=== PATIENT | female | born 1945 | race Caucasian/White ===

== ENCOUNTER 2022-09-10 11:36 | Inpatient (IN) | payer OTHER ==
[2022-09-10] MEDS ORDERED: SODIUM CHLORIDE 1,000 ML IV STA (14:00)
[2022-09-10 14:15] LABS: BASO % 0.5 % (0-2.0); EOS % 1.3 % (0-4.5); HEMOGLOBIN 11.9 GM/dL (10.7-15.3); LYMPH % 23.8 % (8-40); MCH 29.6 pg (25.7-33.7); MCHC 32.9 g/dl (32.0-36.0); MEAN CELL VOLUME 89.8 fl (80-96); MEAN PLT VOLUME 8.3 fl (7.5-11.1); MONO % 6.7 % (3.8-10.2); NEUT % 67.7 % (42.8-82.8); PLATELET COUNT 256 10^3/uL (134-434); RBC 4.01 M/mm3 (3.60-5.2); RDW 13.7 % (11.6-15.6)
[2022-09-10 14:51] LABS: POTASSIUM 5.3 mmol/L (3.5-5.1)
[2022-09-10 14:53] LABS: ALBUMIN 3.5 g/dl (3.4-5.0); BLOOD UREA NITROGEN 31.6 mg/dL (7-18); CALCIUM 9.6 mg/dL (8.5-10.1)
[2022-09-10 14:56] LABS: CREATININE 0.8 mg/dL (0.55-1.3); ERYTHROCYTE SEDIMENTATION RATE 85 mm/hr (0-30)
[2022-09-10 14:58] LABS: BILIRUBIN,TOTAL 0.3 mg/dL (0.2-1); TOT PROT 7.9 g/dl (6.4-8.2)
[2022-09-10] MEDS ORDERED: ONDANSETRON *ODT* 4 MG TABLET SL PRN (16:03)
[2022-09-10] MEDS ORDERED: SODIUM ZIRCONIUM CYCLOSILICATE (LOKELMA) 5 GM PACKET PO ONE (16:10)
[2022-09-10] MEDS ORDERED: SODIUM CHLORIDE 1,000 ML IV SCH (16:15)
[2022-09-10] MEDS ORDERED: SODIUM ZIRCONIUM CYCLOSILICATE (LOKELMA) 5 GM PACKET ONE (16:23)
[2022-09-10] MEDS: INSULIN SLIDING SCALE (NOVOLOG) 1 VIAL SQ SCH (17:05)
[2022-09-10] MEDS ORDERED: ALBUTEROL SO4 0.083% IH SOL 2.5 MG/3 ML VIAL.NEB. NEB ONE (18:55)
[2022-09-10] MEDS: ALBUTEROL SO4 0.083% IH SOL 2.5 MG/3 ML VIAL.NEB. NEB PRN (19:07)
[2022-09-10] MEDS: MIRTAZAPINE 15 MG TABLET (FP) PO SCH (21:21)
[2022-09-10] MEDS: APIXABAN 2.5 MG TABLET PO SCH (21:22)
[2022-09-10] MEDS: CARVEDILOL 3.125 MG TABLET (FP) PO SCH (21:22)
[2022-09-10] MEDS: MELATONIN 5 MG TABLETS PO SCH (21:22)
[2022-09-10] MEDS ORDERED: busPIRone HCL 10 MG TABLET (FP) PO SCH (22:00)
[2022-09-10] MEDS ORDERED: PATIENT'S OWN MEDICATION (NON-FORMULARY) (Cran/Vitc/Mannose/Fos/Bromeln [Uti-Stat Liquid] PO SCH (22:00)
[2022-09-11] MEDS: INSULIN SLIDING SCALE (NOVOLOG) 1 VIAL SQ SCH ×3 (06:07→16:30)
[2022-09-11 08:04] LABS: POTASSIUM 4.3 mmol/L (3.5-5.1)
[2022-09-11 08:17] LABS: BASO % 0.5 % (0-2.0); EOS % 1.4 % (0-4.5); HEMATOCRIT 33.9 % (32.4-45.2); HEMOGLOBIN 11.2 GM/dL (10.7-15.3); LYMPH % 30.6 % (8-40); MCH 30.1 pg (25.7-33.7); MCHC 33.2 g/dl (32.0-36.0); MEAN CELL VOLUME 90.6 fl (80-96); MEAN PLT VOLUME 8.8 fl (7.5-11.1); MONO % 7.5 % (3.8-10.2); PLATELET COUNT 217 10^3/uL (134-434); RBC 3.74 M/mm3 (3.60-5.2); RDW 13.4 % (11.6-15.6); WHITE BLOOD COUNT 8.3 K/mm3 (4.0-10.0)
[2022-09-11 08:21] LABS: CALCIUM 9.2 mg/dL (8.5-10.1)
[2022-09-11 08:25] LABS: CREATININE 0.6 mg/dL (0.55-1.3)
[2022-09-11] MEDS: ASCORBIC ACID 500 MG TABLET (FP) PO SCH (10:05)
[2022-09-11] MEDS: FAMOTIDINE 20 MG TABLET PO SCH (10:05)
[2022-09-11] MEDS: POLYETHYLENE GLYCOL (HEALTHYLAX) 3350 17 GM PACKET PO SCH (10:05)
[2022-09-11] MEDS: SENNOSIDES 8.6MG TABLET (FP) PO SCH (10:05)
[2022-09-11] MEDS: LACTOBACILLUS ACIDOPHILUS 1 TABLET PO SCH (10:05)
[2022-09-11] MEDS: busPIRone HCL 5 MG TABLET PO SCH ×2 (10:05→21:08)
[2022-09-11] MEDS: CARVEDILOL 3.125 MG TABLET (FP) PO SCH ×2 (10:05→21:10)
[2022-09-11] MEDS: APIXABAN 2.5 MG TABLET PO SCH ×2 (10:05→21:10)
[2022-09-11] MEDS: ZINC OXIDE 20% TOPICAL OINTMENT 30 GM TUBE TP SCH (10:08)
[2022-09-11] MEDS: COLLAGENASE CLOSTRIDIUM HIST. 30 GRAMS TUBE TP SCH (16:30)
[2022-09-11] MEDS: traMADol HCL 50 MG TABLET PO PRN (18:24)
[2022-09-11] MEDS: MIRTAZAPINE 15 MG TABLET (FP) PO SCH (21:08)
[2022-09-11] MEDS: ATORVASTATIN CA 10 MG TABLET (FP) PO SCH (21:09)
[2022-09-11] MEDS: ACETAMINOPHEN 325 MG TABLET (FP) PO PRN (21:10)
[2022-09-11] MEDS: MELATONIN 5 MG TABLETS PO SCH (21:10)
[2022-09-12] MEDS: INSULIN SLIDING SCALE (NOVOLOG) 1 VIAL SQ SCH ×3 (06:03→17:53)
[2022-09-12 08:38] LABS: HEMATOCRIT 35.4 % (32.4-45.2); HEMOGLOBIN 11.7 GM/dL (10.7-15.3); MCH 29.7 pg (25.7-33.7); MEAN CELL VOLUME 89.9 fl (80-96); MEAN PLT VOLUME 8.7 fl (7.5-11.1); PLATELET COUNT 227 10^3/uL (134-434); RBC 3.93 M/mm3 (3.60-5.2); RDW 13.5 % (11.6-15.6); WHITE BLOOD COUNT 7.5 K/mm3 (4.0-10.0)
[2022-09-12 08:42] LABS: POTASSIUM 4.5 mmol/L (3.5-5.1)
[2022-09-12 08:48] LABS: BLOOD UREA NITROGEN 20.9 mg/dL (7-18); CALCIUM 9.2 mg/dL (8.5-10.1); MAGNESIUM 1.9 mg/dL (1.8-2.4)
[2022-09-12 08:51] LABS: CREATININE 0.7 mg/dL (0.55-1.3)
[2022-09-12 08:52] LABS: PHOSPHOROUS 3.7 mg/dL (2.5-4.9)
[2022-09-12] MEDS: CARVEDILOL 3.125 MG TABLET (FP) PO SCH ×2 (10:31→22:21)
[2022-09-12] MEDS: POLYETHYLENE GLYCOL (HEALTHYLAX) 3350 17 GM PACKET PO SCH (10:31)
[2022-09-12] MEDS: LACTOBACILLUS ACIDOPHILUS 1 TABLET PO SCH (10:31)
[2022-09-12] MEDS: busPIRone HCL 5 MG TABLET PO SCH ×2 (10:31→22:21)
[2022-09-12] MEDS: ASCORBIC ACID 500 MG TABLET (FP) PO SCH (10:31)
[2022-09-12] MEDS: FAMOTIDINE 20 MG TABLET PO SCH (10:31)
[2022-09-12] MEDS: SENNOSIDES 8.6MG TABLET (FP) PO SCH (10:31)
[2022-09-12] MEDS: APIXABAN 2.5 MG TABLET PO SCH ×2 (10:31→22:21)
[2022-09-12] MEDS ORDERED: BUPIVACAINE HCL/PF 0.5% (5MG/ML) 10 ML VIAL ONE (10:36)
[2022-09-12] MEDS ORDERED: LIDOCAINE HCL 2% (20ML MULTI-DOSE VIAL) ONE (10:36)
[2022-09-12] MEDS ORDERED: PROMETHAZINE HCL 25 MG/1 ML VIAL IVPB PRN (10:52)
[2022-09-12] MEDS ORDERED: ONDANSETRON 4 MG/2 ML VIAL IVPUSH PRN (10:52)
[2022-09-12] MEDS ORDERED: LIDOCAINE HCL 2% (50ML VIAL) INF ONE (11:04)
[2022-09-12] MEDS ORDERED: BUPIVACAINE HCL/PF 0.5% (5MG/ML) 10 ML VIAL IJ ONE (11:04)
[2022-09-12] MEDS ORDERED: PROPOFOL 20 ML ONE (11:05)
[2022-09-12] MEDS ORDERED: LIDOCAINE HCL/PF 2% SDV 5ML VIAL ONE (11:05)
[2022-09-12] MEDS: COLLAGENASE CLOSTRIDIUM HIST. 30 GRAMS TUBE TP SCH (11:37)
[2022-09-12] MEDS: ZINC OXIDE 20% TOPICAL OINTMENT 30 GM TUBE TP SCH (11:46)
[2022-09-12] MEDS: LACTATED RINGERS SOLUTION 1,000 ML IV SCH (11:48)
[2022-09-12] MEDS ORDERED: INSULIN (NOVOLOG) ASPART 100 UNITS/ML 10ML VIAL ONE (17:48)
[2022-09-12] MEDS: ACETAMINOPHEN 325 MG TABLET (FP) PO PRN (18:41)
[2022-09-12] MEDS: ATORVASTATIN CA 10 MG TABLET (FP) PO SCH (22:21)
[2022-09-12] MEDS: QUEtiapine FUMARATE 25 MG TABLET PO SCH (22:21)
[2022-09-12] MEDS: MELATONIN 5 MG TABLETS PO SCH (22:21)
[2022-09-13] MEDS: INSULIN SLIDING SCALE (NOVOLOG) 1 VIAL SQ SCH ×3 (06:21→16:06)
[2022-09-13] MEDS: CARVEDILOL 3.125 MG TABLET (FP) PO SCH ×2 (09:11→21:10)
[2022-09-13] MEDS: APIXABAN 2.5 MG TABLET PO SCH ×2 (09:11→21:08)
[2022-09-13] MEDS: POLYETHYLENE GLYCOL (HEALTHYLAX) 3350 17 GM PACKET PO SCH (09:11)
[2022-09-13] MEDS: LACTOBACILLUS ACIDOPHILUS 1 TABLET PO SCH (09:11)
[2022-09-13] MEDS: SENNOSIDES 8.6MG TABLET (FP) PO SCH (09:11)
[2022-09-13] MEDS: FAMOTIDINE 20 MG TABLET PO SCH (09:11)
[2022-09-13] MEDS: ASCORBIC ACID 500 MG TABLET (FP) PO SCH (09:12)
[2022-09-13] MEDS: busPIRone HCL 5 MG TABLET PO SCH ×2 (09:12→21:08)
[2022-09-13 09:20] LABS: HEMATOCRIT 32.6 % (32.4-45.2); HEMOGLOBIN 10.8 GM/dL (10.7-15.3); MCH 29.6 pg (25.7-33.7); MCHC 33.1 g/dl (32.0-36.0); MEAN CELL VOLUME 89.4 fl (80-96); MEAN PLT VOLUME 8.2 fl (7.5-11.1); PLATELET COUNT 230 10^3/uL (134-434); RBC 3.65 M/mm3 (3.60-5.2); RDW 13.5 % (11.6-15.6); WHITE BLOOD COUNT 6.9 K/mm3 (4.0-10.0)
[2022-09-13 09:48] LABS: POTASSIUM 4.5 mmol/L (3.5-5.1)
[2022-09-13 09:51] LABS: CALCIUM 9.1 mg/dL (8.5-10.1)
[2022-09-13 09:52] LABS: BLOOD UREA NITROGEN 19.1 mg/dL (7-18)
[2022-09-13 09:54] LABS: CREATININE 0.6 mg/dL (0.55-1.3)
[2022-09-13] MEDS: COLLAGENASE CLOSTRIDIUM HIST. 30 GRAMS TUBE TP SCH (10:19)
[2022-09-13] MEDS: ZINC OXIDE 20% TOPICAL OINTMENT 30 GM TUBE TP SCH (10:20)
[2022-09-13] MEDS: LACTATED RINGERS SOLUTION 1,000 ML IV SCH ×2 (11:26→15:32)
[2022-09-13] MEDS: QUEtiapine FUMARATE 25 MG TABLET PO SCH (21:08)
[2022-09-13] MEDS: ATORVASTATIN CA 10 MG TABLET (FP) PO SCH (21:10)
[2022-09-13] MEDS: MELATONIN 5 MG TABLETS PO SCH (21:10)
[2022-09-13] MEDS: traMADol HCL 50 MG TABLET PO PRN (21:10)
[2022-09-14] MEDS: LACTATED RINGERS SOLUTION 1,000 ML IV SCH ×4 (00:30→19:30)
[2022-09-14] MEDS: INSULIN SLIDING SCALE (NOVOLOG) 1 VIAL SQ SCH ×3 (06:00→15:59)
[2022-09-14] MEDS: busPIRone HCL 5 MG TABLET PO SCH ×2 (09:05→21:54)
[2022-09-14] MEDS: LACTOBACILLUS ACIDOPHILUS 1 TABLET PO SCH (09:06)
[2022-09-14] MEDS: SENNOSIDES 8.6MG TABLET (FP) PO SCH (09:06)
[2022-09-14] MEDS: FAMOTIDINE 20 MG TABLET PO SCH (09:06)
[2022-09-14] MEDS: ASCORBIC ACID 500 MG TABLET (FP) PO SCH (09:06)
[2022-09-14] MEDS: CARVEDILOL 3.125 MG TABLET (FP) PO SCH ×2 (09:06→21:54)
[2022-09-14] MEDS: APIXABAN 2.5 MG TABLET PO SCH ×2 (09:06→21:54)
[2022-09-14] MEDS: POLYETHYLENE GLYCOL (HEALTHYLAX) 3350 17 GM PACKET PO SCH (09:07)
[2022-09-14] MEDS: COLLAGENASE CLOSTRIDIUM HIST. 30 GRAMS TUBE TP SCH (10:06)
[2022-09-14] MEDS: ZINC OXIDE 20% TOPICAL OINTMENT 30 GM TUBE TP SCH (10:07)
[2022-09-14] MEDS: CEFTRIAXONE 2 GM in DEXTROSE 5%-WATER - 50 ML IVPB SCH (12:05)
[2022-09-14] MEDS: ALBUTEROL SO4 0.083% IH SOL 2.5 MG/3 ML VIAL.NEB. NEB PRN (13:19)
[2022-09-14] MEDS ORDERED: INSULIN (NOVOLOG) ASPART 100 UNITS/ML 10ML VIAL ONE (15:59)
[2022-09-14] MEDS ORDERED: ONDANSETRON *ODT* 4 MG TABLET SL PRN (19:33)
[2022-09-14] MEDS ORDERED: ALBUTEROL SO4 0.083% IH SOL 2.5 MG/3 ML VIAL.NEB. NEB PRN (19:33)
[2022-09-14] MEDS ORDERED: traMADol HCL 50 MG TABLET PO PRN (19:33)
[2022-09-14] MEDS: QUEtiapine FUMARATE 25 MG TABLET PO SCH (21:54)
[2022-09-14] MEDS: MELATONIN 5 MG TABLETS PO SCH (21:54)
[2022-09-14] MEDS: ACETAMINOPHEN 325 MG TABLET (FP) PO PRN (21:56)
[2022-09-14] MEDS: ATORVASTATIN CA 10 MG TABLET (FP) PO SCH (22:07)
[2022-09-15] MEDS: LACTATED RINGERS SOLUTION 1,000 ML IV SCH (00:14)
[2022-09-15] MEDS: INSULIN SLIDING SCALE (NOVOLOG) 1 VIAL SQ SCH ×3 (06:04→16:38)
[2022-09-15 07:41] LABS: HEMATOCRIT 31.4 % (32.4-45.2); HEMOGLOBIN 10.5 GM/dL (10.7-15.3); MCHC 33.5 g/dl (32.0-36.0); MEAN CELL VOLUME 89.6 fl (80-96); MEAN PLT VOLUME 8.8 fl (7.5-11.1); PLATELET COUNT 229 10^3/uL (134-434); RBC 3.51 M/mm3 (3.60-5.2); RDW 13.8 % (11.6-15.6); WHITE BLOOD COUNT 6.6 K/mm3 (4.0-10.0)
[2022-09-15 07:51] LABS: POTASSIUM 4.2 mmol/L (3.5-5.1)
[2022-09-15 07:57] LABS: CALCIUM 9.1 mg/dL (8.5-10.1)
[2022-09-15 07:58] LABS: BLOOD UREA NITROGEN 15.7 mg/dL (7-18); MAGNESIUM 1.8 mg/dL (1.8-2.4)
[2022-09-15 08:00] LABS: PHOSPHOROUS 3.8 mg/dL (2.5-4.9)
[2022-09-15 08:01] LABS: CREATININE 0.5 mg/dL (0.55-1.3)
[2022-09-15] MEDS: busPIRone HCL 5 MG TABLET PO SCH ×2 (10:38→22:02)
[2022-09-15] MEDS: ASCORBIC ACID 500 MG TABLET (FP) PO SCH (10:39)
[2022-09-15] MEDS: POLYETHYLENE GLYCOL (HEALTHYLAX) 3350 17 GM PACKET PO SCH (10:39)
[2022-09-15] MEDS: CEFTRIAXONE 2 GM in DEXTROSE 5%-WATER - 50 ML IVPB SCH (10:39)
[2022-09-15] MEDS: SENNOSIDES 8.6MG TABLET (FP) PO SCH (10:39)
[2022-09-15] MEDS: LACTOBACILLUS ACIDOPHILUS 1 TABLET PO SCH (10:39)
[2022-09-15] MEDS: CARVEDILOL 3.125 MG TABLET (FP) PO SCH ×2 (10:39→22:03)
[2022-09-15] MEDS: FAMOTIDINE 20 MG TABLET PO SCH (10:39)
[2022-09-15] MEDS: APIXABAN 2.5 MG TABLET PO SCH (10:42)
[2022-09-15] MEDS ORDERED: VANCOMYCIN/WATER FOR INJ (PEG) 1,000 MG/200 ML BAG IVPB SCH (14:30)
[2022-09-15] MEDS ORDERED: APIXABAN 2.5 MG TABLET PO SCH (22:00)
[2022-09-15] MEDS: MELATONIN 5 MG TABLETS PO SCH (22:02)
[2022-09-15] MEDS: QUEtiapine FUMARATE 25 MG TABLET PO SCH (22:03)
[2022-09-15] MEDS: ATORVASTATIN CA 10 MG TABLET (FP) PO SCH (22:03)
[2022-09-16] MEDS: ACETAMINOPHEN 325 MG TABLET (FP) PO PRN (02:23)
[2022-09-16] MEDS: INSULIN SLIDING SCALE (NOVOLOG) 1 VIAL SQ SCH ×3 (06:27→16:49)
[2022-09-16] MEDS: ASCORBIC ACID 500 MG TABLET (FP) PO SCH (10:01)
[2022-09-16] MEDS: LACTOBACILLUS ACIDOPHILUS 1 TABLET PO SCH (10:01)
[2022-09-16] MEDS: SENNOSIDES 8.6MG TABLET (FP) PO SCH (10:01)
[2022-09-16] MEDS: FAMOTIDINE 20 MG TABLET PO SCH (10:02)
[2022-09-16] MEDS: CARVEDILOL 3.125 MG TABLET (FP) PO SCH ×2 (10:02→22:49)
[2022-09-16] MEDS: busPIRone HCL 5 MG TABLET PO SCH ×2 (10:02→22:49)
[2022-09-16] MEDS: POLYETHYLENE GLYCOL (HEALTHYLAX) 3350 17 GM PACKET PO SCH (10:09)
[2022-09-16 10:48] LABS: MCH 29.9 pg (25.7-33.7); MCHC 33.4 g/dl (32.0-36.0); MEAN CELL VOLUME 89.4 fl (80-96); PLATELET COUNT 254 10^3/uL (134-434); RDW 13.9 % (11.6-15.6)
[2022-09-16 10:56] LABS: INR 1.3 (0.83-1.09)
[2022-09-16 11:02] LABS: POTASSIUM 4.8 mmol/L (3.5-5.1)
[2022-09-16 11:15] LABS: CALCIUM 8.9 mg/dL (8.5-10.1); MAGNESIUM 1.8 mg/dL (1.8-2.4)
[2022-09-16 11:17] LABS: CREATININE 0.6 mg/dL (0.55-1.3); PHOSPHOROUS 3.9 mg/dL (2.5-4.9)
[2022-09-16] MEDS: ZINC OXIDE 20% TOPICAL OINTMENT 30 GM TUBE TP SCH ×2 (11:18→11:34)
[2022-09-16] MEDS: LOSARTAN POTASSIUM 25 MG TABLET PO SCH (12:22)
[2022-09-16] MEDS: CEFTRIAXONE 2 GM in DEXTROSE 5%-WATER 100 ML IVPB SCH (13:47)
[2022-09-16] MEDS ORDERED: APIXABAN 2.5 MG TABLET PO ONE ×2 (14:00→22:00)
[2022-09-16 16:34] VITALS: BMI 21.7
[2022-09-16] MEDS ORDERED: INSULIN (NOVOLOG) ASPART 100 UNITS/ML 10ML VIAL ONE (16:47)
[2022-09-16] MEDS ORDERED: APIXABAN 2.5 MG TABLET PO SCH (22:00)
[2022-09-16] MEDS: QUEtiapine FUMARATE 25 MG TABLET PO SCH (22:48)
[2022-09-16] MEDS: MELATONIN 5 MG TABLETS PO SCH (22:49)
[2022-09-16] MEDS: ATORVASTATIN CA 10 MG TABLET (FP) PO SCH (22:49)
[2022-09-17] MEDS: ACETAMINOPHEN 325 MG TABLET (FP) PO PRN (03:30)
[2022-09-17] MEDS ORDERED: hydrALAZINE HCL 10 MG TABLET PO ONE (05:03)
[2022-09-17] MEDS: INSULIN SLIDING SCALE (NOVOLOG) 1 VIAL SQ SCH ×3 (06:01→16:16)
[2022-09-17] MEDS ORDERED: DEXTROSE 5%-0.45% SALINE 1,000 ML IV SCH (08:45)
[2022-09-17] MEDS: CARVEDILOL 3.125 MG TABLET (FP) PO SCH ×2 (09:11→21:46)
[2022-09-17] MEDS: POLYETHYLENE GLYCOL (HEALTHYLAX) 3350 17 GM PACKET PO SCH (09:11)
[2022-09-17] MEDS: SENNOSIDES 8.6MG TABLET (FP) PO SCH (09:11)
[2022-09-17] MEDS: LOSARTAN POTASSIUM 25 MG TABLET PO SCH (09:11)
[2022-09-17] MEDS: LACTOBACILLUS ACIDOPHILUS 1 TABLET PO SCH (09:12)
[2022-09-17] MEDS: busPIRone HCL 5 MG TABLET PO SCH ×2 (09:12→21:46)
[2022-09-17] MEDS: FAMOTIDINE 20 MG TABLET PO SCH (09:12)
[2022-09-17] MEDS: CEFTRIAXONE 2 GM in DEXTROSE 5%-WATER 100 ML IVPB SCH (09:12)
[2022-09-17] MEDS: ASCORBIC ACID 500 MG TABLET (FP) PO SCH (09:13)
[2022-09-17] MEDS: ZINC OXIDE 20% TOPICAL OINTMENT 30 GM TUBE TP SCH (09:26)
[2022-09-17 10:30] LABS: HEMATOCRIT 33.5 % (32.4-45.2); HEMOGLOBIN 11.2 GM/dL (10.7-15.3); MCH 29.9 pg (25.7-33.7); MCHC 33.3 g/dl (32.0-36.0); MEAN CELL VOLUME 89.7 fl (80-96); PLATELET COUNT 256 10^3/uL (134-434); RBC 3.74 M/mm3 (3.60-5.2); RDW 13.7 % (11.6-15.6); WHITE BLOOD COUNT 7.5 K/mm3 (4.0-10.0)
[2022-09-17 10:49] LABS: POTASSIUM 3.9 mmol/L (3.5-5.1)
[2022-09-17 10:51] LABS: BLOOD UREA NITROGEN 15.2 mg/dL (7-18); CALCIUM 9.2 mg/dL (8.5-10.1)
[2022-09-17 10:52] LABS: MAGNESIUM 1.9 mg/dL (1.8-2.4)
[2022-09-17] MEDS: LOSARTAN POTASSIUM 50 MG TABLET PO SCH (10:52)
[2022-09-17 10:55] LABS: CREATININE 0.6 mg/dL (0.55-1.3); PHOSPHOROUS 3.7 mg/dL (2.5-4.9)
[2022-09-17] MEDS: ATORVASTATIN CA 10 MG TABLET (FP) PO SCH (21:46)
[2022-09-17] MEDS: QUEtiapine FUMARATE 25 MG TABLET PO SCH (21:46)
[2022-09-17] MEDS: MELATONIN 5 MG TABLETS PO SCH (21:47)
[2022-09-18] MEDS ORDERED: DEXTROSE 5%-0.45% SALINE 1,000 ML IV SCH ×2 (00:01→11:18)
[2022-09-18] MEDS: INSULIN SLIDING SCALE (NOVOLOG) 1 VIAL SQ SCH ×3 (06:13→16:56)
[2022-09-18] MEDS ORDERED: LIDOCAINE HCL 1%, 10 MG/ML (10ML VIAL) MDV ONE (08:42)
[2022-09-18] MEDS ORDERED: HEPARIN NA (PORCINE) 5,000 UNITS/ML 1ML VIAL ONE ×2 (08:42→10:27)
[2022-09-18] MEDS: LOSARTAN POTASSIUM 50 MG TABLET PO SCH (09:10)
[2022-09-18] MEDS: LACTOBACILLUS ACIDOPHILUS 1 TABLET PO SCH (09:10)
[2022-09-18] MEDS: CEFTRIAXONE 2 GM in DEXTROSE 5%-WATER 100 ML IVPB SCH (09:10)
[2022-09-18] MEDS: busPIRone HCL 5 MG TABLET PO SCH ×2 (09:10→22:05)
[2022-09-18] MEDS: CARVEDILOL 3.125 MG TABLET (FP) PO SCH ×2 (09:10→22:05)
[2022-09-18] MEDS: SENNOSIDES 8.6MG TABLET (FP) PO SCH (09:10)
[2022-09-18] MEDS: FAMOTIDINE 20 MG TABLET PO SCH (09:10)
[2022-09-18] MEDS: ASCORBIC ACID 500 MG TABLET (FP) PO SCH (09:11)
[2022-09-18 09:48] LABS: HEMATOCRIT 32.6 % (32.4-45.2); HEMOGLOBIN 10.6 GM/dL (10.7-15.3); MCH 28.9 pg (25.7-33.7); MCHC 32.3 g/dl (32.0-36.0); MEAN CELL VOLUME 89.4 fl (80-96); MEAN PLT VOLUME 8.2 fl (7.5-11.1); PLATELET COUNT 255 10^3/uL (134-434); RBC 3.65 M/mm3 (3.60-5.2); RDW 14.2 % (11.6-15.6); WHITE BLOOD COUNT 6.7 K/mm3 (4.0-10.0)
[2022-09-18 09:55] LABS: INR 1.16 (0.83-1.09); PROTHROMBIN TIME (PATIENT) 13.4 SEC (9.7-13.0)
[2022-09-18] MEDS ORDERED: ONDANSETRON 4 MG/2 ML VIAL ONE (09:57)
[2022-09-18] MEDS ORDERED: MIDAZOLAM HCL 2 MG/2 ML SINGLE DOSE VIAL ONE (09:57)
[2022-09-18 09:58] LABS: ACTIVATED PTT 35.1 SECONDS (25.2-36.5)
[2022-09-18] MEDS ORDERED: PROPOFOL 20 ML ONE (09:58)
[2022-09-18] MEDS ORDERED: LIDOCAINE HCL 1% PRESERVATIVE FREE - 30ML VIAL IJ ONE (10:18)
[2022-09-18 10:19] LABS: BLOOD UREA NITROGEN 14.5 mg/dL (7-18); CALCIUM 9.1 mg/dL (8.5-10.1)
[2022-09-18 10:23] LABS: CREATININE 0.5 mg/dL (0.55-1.3)
[2022-09-18] MEDS ORDERED: ONDANSETRON 4 MG/2 ML VIAL IVPUSH PRN (11:14)
[2022-09-18] MEDS ORDERED: oxyCODONE HCL 5 MG TABLET PO PRN (11:14)
[2022-09-18] MEDS ORDERED: LACTATED RINGERS SOLUTION 1,000 ML IV SCH (11:15)
[2022-09-18] MEDS ORDERED: ACETAMINOPHEN 325 MG TABLET (FP) PO PRN (11:18)
[2022-09-18] MEDS ORDERED: ALBUTEROL SO4 0.083% IH SOL 2.5 MG/3 ML VIAL.NEB. NEB PRN (11:18)
[2022-09-18] MEDS ORDERED: ONDANSETRON *ODT* 4 MG TABLET SL PRN (11:18)
[2022-09-18] MEDS ORDERED: traMADol HCL 50 MG TABLET PO PRN (11:18)
[2022-09-18] MEDS ORDERED: CLOPIDOGREL BISULFATE 75 MG TABLET (FP) ONE (11:35)
[2022-09-18] MEDS: CLOPIDOGREL BISULFATE 75 MG TABLET (FP) PO SCH (11:42)
[2022-09-18] MEDS: POLYETHYLENE GLYCOL (HEALTHYLAX) 3350 17 GM PACKET PO SCH (12:40)
[2022-09-18] MEDS ORDERED: MELATONIN 5 MG TABLETS PO SCH (22:00)
[2022-09-18] MEDS ORDERED: QUEtiapine FUMARATE 25 MG TABLET PO SCH (22:00)
[2022-09-18] MEDS ORDERED: ATORVASTATIN CA 10 MG TABLET (FP) PO SCH (22:00)
[2022-09-19] MEDS: INSULIN SLIDING SCALE (NOVOLOG) 1 VIAL SQ SCH ×3 (06:28→16:43)
[2022-09-19] MEDS ORDERED: APIXABAN 2.5 MG TABLET PO SCH ×2 (07:01→10:00)
[2022-09-19 08:16] LABS: HEMATOCRIT 31.9 % (32.4-45.2); HEMOGLOBIN 10.6 GM/dL (10.7-15.3); MCH 29.6 pg (25.7-33.7); MCHC 33.3 g/dl (32.0-36.0); MEAN CELL VOLUME 89.1 fl (80-96); MEAN PLT VOLUME 9.2 fl (7.5-11.1); PLATELET COUNT 247 10^3/uL (134-434); RBC 3.58 M/mm3 (3.60-5.2); RDW 13.9 % (11.6-15.6); WHITE BLOOD COUNT 9.4 K/mm3 (4.0-10.0)
[2022-09-19 08:28] LABS: BLOOD UREA NITROGEN 16.7 mg/dL (7-18); CALCIUM 8.9 mg/dL (8.5-10.1)
[2022-09-19 08:32] LABS: CREATININE 0.6 mg/dL (0.55-1.3)
[2022-09-19] MEDS ORDERED: LOSARTAN POTASSIUM 50 MG TABLET PO SCH (10:00)
[2022-09-19] MEDS ORDERED: ASCORBIC ACID 500 MG TABLET (FP) PO SCH (10:00)
[2022-09-19] MEDS ORDERED: ZINC OXIDE 20% TOPICAL OINTMENT 30 GM TUBE TP SCH (10:00)
[2022-09-19] MEDS ORDERED: SENNOSIDES 8.6MG TABLET (FP) PO SCH (10:00)
[2022-09-19] MEDS ORDERED: CEFTRIAXONE 2 GM in DEXTROSE 5%-WATER 100 ML IVPB SCH (10:00)
[2022-09-19] MEDS ORDERED: POLYETHYLENE GLYCOL (HEALTHYLAX) 3350 17 GM PACKET PO SCH (10:00)
[2022-09-19] MEDS ORDERED: CLOPIDOGREL BISULFATE 75 MG TABLET (FP) PO SCH (10:00)
[2022-09-19] MEDS ORDERED: FAMOTIDINE 20 MG TABLET PO SCH (10:00)
[2022-09-19] MEDS ORDERED: LACTOBACILLUS ACIDOPHILUS 1 TABLET PO SCH (10:00)
[2022-09-19] MEDS: CARVEDILOL 3.125 MG TABLET (FP) PO SCH (10:09)
[2022-09-19] MEDS: busPIRone HCL 5 MG TABLET PO SCH (10:09)
[2022-09-19] MEDS ORDERED: INSULIN (NOVOLOG) ASPART 100 UNITS/ML 10ML VIAL ONE ×2 (11:25→12:05)
[2022-09-19 15:11] VITALS: BP 161/76; PULSE 65; RESP 18; TEMP 97.5
== END 2022-09-19 19:12 | DRG 271 ==
LOC: JER 11:36 → JERBED 15:31 → J6S 20:38
PROVIDERS: ADMIT Internal Medicine; ATTEND Internal Medicine
PROC: 0Q9 Lower Bones, Drainage (ICD-10-PCS; principal; 2022-09-12 11:00)
PROC: 04CL3ZZ Extirpation of Matter from Left Femoral Artery, Percutaneous Approach (ICD-10-PCS; 2022-09-18)
PROC: 047L3D1 Dilation of Left Femoral Artery with Intraluminal Device, using Drug-Coated Balloon, Percutaneous Approach (ICD-10-PCS; 2022-09-18)
PROC: 3E05317 Introduction of Other Thrombolytic into Peripheral Artery, Percutaneous Approach (ICD-10-PCS; 2022-09-18)
PROC: B41DYZZ Fluoroscopy of Aorta and Bilateral Lower Extremity Arteries using Other Contrast (ICD-10-PCS; 2022-09-18)
PROC: 05HY33Z Insertion of Infusion Device into Upper Vein, Percutaneous Approach (ICD-10-PCS; 2022-09-19)
PROC: B54MZZA Ultrasonography of Right Upper Extremity Veins, Guidance (ICD-10-PCS; 2022-09-19)
DX: E11.52 Type 2 diabetes mellitus with diabetic peripheral angiopathy with gangrene (principal); F05 Delirium due to known physiological condition; M86.9 Osteomyelitis, unspecified; E11.69 Type 2 diabetes mellitus with other specified complication; I48.0 Paroxysmal atrial fibrillation; E11.621 Type 2 diabetes mellitus with foot ulcer; E78.5 Hyperlipidemia, unspecified
CPT/HCPCS: 36415; 36569; 71045-TC-FY; 73630-TC-LT; 76000-TC-FY; 77001-TC-FY; 80048; 80053; 82962; 83735; 84100; 85025; 85027; 85610; 85651; 85730; 86140; 87070; 87075; 87186; 87205; 93005; 93010; 94640; 94760; 99285-25; C1725; C1751; C1760; C1769; C1776; C1876; C9803-CS; G0463-25; J1644; U0003; U0005

== ENCOUNTER 2023-01-21 13:33 | Inpatient (IN) | payer OTHER ==
[2023-01-21 15:11] LABS: BASO % 0.4 % (0-2.0); HEMATOCRIT 28.5 % (32.4-45.2); HEMOGLOBIN 9.4 GM/dL (10.7-15.3); LYMPH % 17.1 % (8-40); MCH 27.8 pg (25.7-33.7); MCHC 32.8 g/dl (32.0-36.0); MEAN CELL VOLUME 84.7 fl (80-96); MEAN PLT VOLUME 6.7 fl (7.5-11.1); MONO % 6.5 % (3.8-10.2); PLATELET COUNT 520 10^3/uL (134-434); RBC 3.37 M/mm3 (3.60-5.2); RDW 13.1 % (11.6-15.6); WHITE BLOOD COUNT 10.3 K/mm3 (4.0-10.0)
[2023-01-21 15:18] LABS: INR 1.66 (0.83-1.09); PROTHROMBIN TIME (PATIENT) 19.2 SEC (9.7-13.0)
[2023-01-21 15:21] LABS: ACTIVATED PTT 53.1 SECONDS (25.2-36.5)
[2023-01-21 15:43] LABS: ALBUMIN 2.5 g/dl (3.4-5.0); BLOOD UREA NITROGEN 22.1 mg/dL (7-18); CALCIUM 8.8 mg/dL (8.5-10.1)
[2023-01-21 15:47] LABS: CREATININE 0.9 mg/dL (0.55-1.3)
[2023-01-21 15:49] LABS: BILIRUBIN,TOTAL 0.2 mg/dL (0.2-1); TOT PROT 8.1 g/dl (6.4-8.2)
[2023-01-21] MEDS ORDERED: ACETAMINOPHEN 1000 MG/100 ML BAG IVPB PRN (18:32)
[2023-01-21] MEDS ORDERED: TRAMADOL HCL 50 MG PO PRN (18:52)
[2023-01-21] MEDS ORDERED: traMADol HCL 50 MG TABLET PO PRN (19:12)
[2023-01-21] MEDS: CEFEPIME 1 GM in DEXTROSE 5%-WATER 100 ML IVPB SCH (21:42)
[2023-01-21] MEDS: INSULIN SLIDING SCALE (NOVOLOG) 1 VIAL SQ SCH (21:49)
[2023-01-21] MEDS: CARVEDILOL 3.125 MG TABLET (FP) PO SCH (21:51)
[2023-01-21] MEDS: HEPARIN NA (PORCINE) 5,000 UNITS/ML 1ML VIAL SQ SCH (21:51)
[2023-01-21] MEDS: busPIRone HCL 10 MG TABLET (FP) PO SCH (21:52)
[2023-01-21] MEDS ORDERED: MELATONIN 5 MG PO SCH (22:00)
[2023-01-21] MEDS ORDERED: MIRTAZAPINE 15 MG TABLET (FP) PO SCH (22:00)
[2023-01-21] MEDS ORDERED: CARVEDILOL 3.125 MG PO SCH (22:00)
[2023-01-21] MEDS ORDERED: MELATONIN 5 MG TABLETS PO SCH (22:00)
[2023-01-21] MEDS ORDERED: ATORVASTATIN CA 10 MG TABLET (FP) PO SCH (22:00)
[2023-01-21] MEDS ORDERED: MIRTAZAPINE 7.5 MG PO SCH (22:00)
[2023-01-21] MEDS ORDERED: BUSPIRONE HCL 10 MG PO SCH (22:00)
[2023-01-22] MEDS: HEPARIN NA (PORCINE) 5,000 UNITS/ML 1ML VIAL SQ SCH ×3 (05:49→23:14)
[2023-01-22] MEDS: INSULIN SLIDING SCALE (NOVOLOG) 1 VIAL SQ SCH ×4 (06:33→23:14)
[2023-01-22] MEDS: CARVEDILOL 3.125 MG TABLET (FP) PO SCH ×2 (09:42→23:12)
[2023-01-22] MEDS: CEFEPIME 1 GM in DEXTROSE 5%-WATER 100 ML IVPB SCH (09:42)
[2023-01-22] MEDS: busPIRone HCL 10 MG TABLET (FP) PO SCH ×2 (09:50→23:12)
[2023-01-22] MEDS ORDERED: ATORVASTATIN CA 10 MG PO SCH (10:00)
[2023-01-22] MEDS ORDERED: ceFAZolin SODIUM 1 GM VIAL IVPB ONE ×2 (10:39)
[2023-01-22] MEDS ORDERED: LIDOCAINE HCL 1%, 10 MG/ML (20ML VIAL) INF ONE (10:41)
[2023-01-22] MEDS ORDERED: IOVERSOL 320 MG/ML ML IV ONE (10:42)
[2023-01-22] MEDS ORDERED: HEPARIN NA (PORCINE) 5,000 UNITS/ML 1ML VIAL SQ ONE (10:43)
[2023-01-22 11:12] LABS: BASO % 0.5 % (0-2.0); EOS % 0.9 % (0-4.5); HEMATOCRIT 25.9 % (32.4-45.2); HEMOGLOBIN 8.7 GM/dL (10.7-15.3); MCH 28.6 pg (25.7-33.7); MCHC 33.5 g/dl (32.0-36.0); MEAN CELL VOLUME 85.2 fl (80-96); MEAN PLT VOLUME 7.1 fl (7.5-11.1); MONO % 7.6 % (3.8-10.2); PLATELET COUNT 519 10^3/uL (134-434); RBC 3.04 M/mm3 (3.60-5.2); RDW 13.3 % (11.6-15.6); WHITE BLOOD COUNT 8.7 K/mm3 (4.0-10.0)
[2023-01-22 11:42] LABS: ALBUMIN 2.4 g/dl (3.4-5.0); CALCIUM 9.3 mg/dL (8.5-10.1)
[2023-01-22 11:43] LABS: MAGNESIUM 2.3 mg/dL (1.8-2.4)
[2023-01-22 11:44] LABS: CREATININE 0.7 mg/dL (0.55-1.3)
[2023-01-22 11:45] LABS: PHOSPHOROUS 4.2 mg/dL (2.5-4.9)
[2023-01-22 11:46] LABS: BILIRUBIN,TOTAL 0.2 mg/dL (0.2-1); TOT PROT 7.8 g/dl (6.4-8.2)
[2023-01-22] MEDS ORDERED: HEPARIN NA (PORCINE) 5,000 UNITS/ML 1ML VIAL ONE (12:53)
[2023-01-22] MEDS ORDERED: LIDOCAINE HCL 1%, 10 MG/ML (20ML VIAL) ONE (12:53)
[2023-01-22] MEDS ORDERED: CEFTRIAXONE 2 GM in DEXTROSE 5%-WATER 100 ML IVPB SCH (13:15)
[2023-01-22 13:38] LABS: POTASSIUM 5.1 mmol/L (3.5-5.1)
[2023-01-22 13:39] LABS: CALCIUM 8.9 mg/dL (8.5-10.1)
[2023-01-22 13:40] LABS: BLOOD UREA NITROGEN 19.3 mg/dL (7-18)
[2023-01-22 13:43] LABS: CREATININE 0.7 mg/dL (0.55-1.3)
[2023-01-22] MEDS ORDERED: MIDAZOLAM HCL 2 MG/2 ML SINGLE DOSE VIAL ONE ×2 (14:32→15:38)
[2023-01-22] MEDS ORDERED: LACTATED RINGERS SOLUTION 1,000 ML IV SCH (16:30)
[2023-01-22] MEDS ORDERED: ACETAMINOPHEN 1000 MG/100 ML BAG IVPB PRN (16:32)
[2023-01-22] MEDS: LACTATED RINGERS SOLUTION 1,000 ML IV SCH (16:35)
[2023-01-22] MEDS ORDERED: DEXTROSE 50%-WATER 25 GM/50 ML DISP.SYRIN ONE (16:42)
[2023-01-22] MEDS ORDERED: DEXTROSE 50%-WATER 25 GM/50 ML DISP.SYRIN IVPUSH ONE (16:44)
[2023-01-22] MEDS ORDERED: DEXTROSE 50%-WATER - 25 GM/50 ML VIAL IVPUSH ONE (16:45)
[2023-01-22] MEDS ORDERED: CLOPIDOGREL BISULFATE 75 MG TABLET (FP) ONE (17:48)
[2023-01-22] MEDS ORDERED: CLOPIDOGREL BISULFATE 75 MG TABLET (FP) PO ONE (17:50)
[2023-01-22] MEDS: CLOPIDOGREL BISULFATE 75 MG TABLET (FP) PO SCH (18:29)
[2023-01-22] MEDS: ATORVASTATIN CA 10 MG TABLET (FP) PO SCH (23:12)
[2023-01-22] MEDS: MIRTAZAPINE 15 MG TABLET (FP) PO SCH (23:13)
[2023-01-22] MEDS: MELATONIN 5 MG TABLETS PO SCH (23:13)
[2023-01-22] MEDS: CEFEPIME HCL 1 GM VIAL (RESTRICTED TO ID) IVPB SCH ×2 (23:13→23:14)
[2023-01-23] MEDS: INSULIN SLIDING SCALE (NOVOLOG) 1 VIAL SQ SCH ×4 (07:47→22:10)
[2023-01-23] MEDS: HEPARIN NA (PORCINE) 5,000 UNITS/ML 1ML VIAL SQ SCH ×3 (07:47→22:09)
[2023-01-23] MEDS: LACTATED RINGERS SOLUTION 1,000 ML IV SCH (10:00)
[2023-01-23] MEDS: CARVEDILOL 3.125 MG TABLET (FP) PO SCH ×2 (10:29→22:09)
[2023-01-23] MEDS: busPIRone HCL 10 MG TABLET (FP) PO SCH ×2 (10:29→22:09)
[2023-01-23] MEDS: CEFTRIAXONE 2 GM in DEXTROSE 5%-WATER 100 ML IVPB SCH (10:29)
[2023-01-23] MEDS: CLOPIDOGREL BISULFATE 75 MG TABLET (FP) PO SCH (10:29)
[2023-01-23 11:19] LABS: BASO % 0.5 % (0-2.0); EOS % 0.6 % (0-4.5); HEMOGLOBIN 7.9 GM/dL (10.7-15.3); LYMPH % 11.9 % (8-40); MCH 26.9 pg (25.7-33.7); MCHC 31.7 g/dl (32.0-36.0); MEAN CELL VOLUME 84.8 fl (80-96); MEAN PLT VOLUME 7.1 fl (7.5-11.1); MONO % 6.7 % (3.8-10.2); NEUT % 80.3 % (42.8-82.8); PLATELET COUNT 420 10^3/uL (134-434); RBC 2.95 M/mm3 (3.60-5.2); RDW 13.5 % (11.6-15.6); WHITE BLOOD COUNT 12.6 K/mm3 (4.0-10.0)
[2023-01-23 11:38] LABS: POTASSIUM 4.7 mmol/L (3.5-5.1)
[2023-01-23 11:39] LABS: CALCIUM 8.3 mg/dL (8.5-10.1)
[2023-01-23 11:40] LABS: ALBUMIN 2.1 g/dl (3.4-5.0); BLOOD UREA NITROGEN 22.8 mg/dL (7-18)
[2023-01-23 11:43] LABS: CREATININE 0.9 mg/dL (0.55-1.3)
[2023-01-23 11:44] LABS: BILIRUBIN,TOTAL 0.2 mg/dL (0.2-1)
[2023-01-23] MEDS: ATORVASTATIN CA 10 MG TABLET (FP) PO SCH (22:09)
[2023-01-23] MEDS: MIRTAZAPINE 15 MG TABLET (FP) PO SCH (22:10)
[2023-01-23] MEDS: MELATONIN 5 MG TABLETS PO SCH (22:10)
[2023-01-24] MEDS: HEPARIN NA (PORCINE) 5,000 UNITS/ML 1ML VIAL SQ SCH ×3 (05:26→21:40)
[2023-01-24] MEDS: INSULIN SLIDING SCALE (NOVOLOG) 1 VIAL SQ SCH ×5 (06:23→21:40)
[2023-01-24] MEDS: ACETAMINOPHEN 500 MG TABLET (FP) PO PRN (09:23)
[2023-01-24] MEDS: ASCORBIC ACID 250 MG TABLET (FP) PO SCH (09:24)
[2023-01-24] MEDS: CARVEDILOL 3.125 MG TABLET (FP) PO SCH ×2 (09:24→21:34)
[2023-01-24] MEDS: MULTIVITAMINS (DAILY MVI) TABLET (FP) PO SCH (09:24)
[2023-01-24] MEDS: CEFTRIAXONE 2 GM in DEXTROSE 5%-WATER 100 ML IVPB SCH (09:24)
[2023-01-24] MEDS: busPIRone HCL 10 MG TABLET (FP) PO SCH ×2 (09:24→21:34)
[2023-01-24] MEDS: CLOPIDOGREL BISULFATE 75 MG TABLET (FP) PO SCH (09:24)
[2023-01-24] MEDS: AMINO ACIDS/PROTEIN HYDROLYS 30 ML LIQUID.PKT PO SCH (09:25)
[2023-01-24 09:43] LABS: BASO % 0.3 % (0-2.0); EOS % 1.6 % (0-4.5); HEMATOCRIT 22.9 % (32.4-45.2); HEMOGLOBIN 7.1 GM/dL (10.7-15.3); LYMPH % 12.5 % (8-40); MCH 26.9 pg (25.7-33.7); MCHC 31.1 g/dl (32.0-36.0); MEAN CELL VOLUME 86.6 fl (80-96); MONO % 7.3 % (3.8-10.2); NEUT % 78.3 % (42.8-82.8); PLATELET COUNT 367 10^3/uL (134-434); RBC 2.65 M/mm3 (3.60-5.2); RDW 13.4 % (11.6-15.6)
[2023-01-24 09:52] LABS: CHLORIDE 103 mmol/L (98-107); SODIUM 137 mmol/L (136-145)
[2023-01-24 10:05] LABS: CALCIUM 8.1 mg/dL (8.5-10.1); GLUCOSE,RANDOM 89 mg/dL (74-106)
[2023-01-24 10:06] LABS: ANION GAP 7 MMOL/L (8-16); BLOOD UREA NITROGEN 31.2 mg/dL (7-18); CO2 27 mmol/L (21-32)
[2023-01-24 10:08] LABS: SGPT/ALT < 6 U/L (13-61)
[2023-01-24 10:09] LABS: CREATININE 1.2 mg/dL (0.55-1.3); SGOT/AST 6 U/L (15-37)
[2023-01-24 10:10] LABS: BILIRUBIN,TOTAL 0.3 mg/dL (0.2-1); TOT PROT 6.5 g/dl (6.4-8.2)
[2023-01-24 10:11] LABS: ALK PHOS 87 U/L (45-117)
[2023-01-24] MEDS: oxyCODONE HCL 5 MG TABLET PO PRN ×2 (18:45→23:40)
[2023-01-24] MEDS: ATORVASTATIN CA 10 MG TABLET (FP) PO SCH (21:33)
[2023-01-24] MEDS: MELATONIN 5 MG TABLETS PO SCH (21:33)
[2023-01-24] MEDS: traMADol HCL 50 MG TABLET PO PRN (21:33)
[2023-01-24] MEDS: MIRTAZAPINE 15 MG TABLET (FP) PO SCH (21:33)
[2023-01-25] MEDS: HEPARIN NA (PORCINE) 5,000 UNITS/ML 1ML VIAL SQ SCH ×3 (05:21→21:19)
[2023-01-25] MEDS: INSULIN SLIDING SCALE (NOVOLOG) 1 VIAL SQ SCH ×4 (06:18→21:16)
[2023-01-25 08:37] LABS: BASO % 0.3 % (0-2.0); EOS % 1.4 % (0-4.5); HEMATOCRIT 22.4 % (32.4-45.2); MCH 27.1 pg (25.7-33.7); MCHC 31.3 g/dl (32.0-36.0); MEAN CELL VOLUME 86.7 fl (80-96); MEAN PLT VOLUME 7.1 fl (7.5-11.1); MONO % 6.1 % (3.8-10.2); NEUT % 82.2 % (42.8-82.8); PLATELET COUNT 381 10^3/uL (134-434); RBC 2.58 M/mm3 (3.60-5.2); RDW 13.1 % (11.6-15.6); WHITE BLOOD COUNT 11.4 K/mm3 (4.0-10.0)
[2023-01-25 08:55] LABS: POTASSIUM 4.9 mmol/L (3.5-5.1)
[2023-01-25 08:57] LABS: BLOOD UREA NITROGEN 40.2 mg/dL (7-18); MAGNESIUM 1.8 mg/dL (1.8-2.4)
[2023-01-25 09:00] LABS: CREATININE 1.2 mg/dL (0.55-1.3)
[2023-01-25] MEDS: CLOPIDOGREL BISULFATE 75 MG TABLET (FP) PO SCH (09:55)
[2023-01-25] MEDS: CARVEDILOL 3.125 MG TABLET (FP) PO SCH ×2 (09:56→21:19)
[2023-01-25] MEDS: CEFTRIAXONE 2 GM in DEXTROSE 5%-WATER 100 ML IVPB SCH (09:56)
[2023-01-25] MEDS: busPIRone HCL 10 MG TABLET (FP) PO SCH ×2 (09:56→21:18)
[2023-01-25] MEDS: LACTOBACILLUS ACIDOPHILUS 1 TABLET PO SCH (09:56)
[2023-01-25] MEDS: MULTIVITAMINS (DAILY MVI) TABLET (FP) PO SCH (09:56)
[2023-01-25] MEDS: ASCORBIC ACID 250 MG TABLET (FP) PO SCH (09:56)
[2023-01-25] MEDS: AMINO ACIDS/PROTEIN HYDROLYS 30 ML LIQUID.PKT PO SCH (09:56)
[2023-01-25] MEDS: oxyCODONE HCL 5 MG TABLET PO PRN (09:57)
[2023-01-25] MEDS: MELATONIN 5 MG TABLETS PO SCH (21:18)
[2023-01-25] MEDS: MIRTAZAPINE 15 MG TABLET (FP) PO SCH (21:18)
[2023-01-25] MEDS: ATORVASTATIN CA 10 MG TABLET (FP) PO SCH (21:19)
[2023-01-26] MEDS: HEPARIN NA (PORCINE) 5,000 UNITS/ML 1ML VIAL SQ SCH ×3 (05:32→22:10)
[2023-01-26] MEDS: INSULIN SLIDING SCALE (NOVOLOG) 1 VIAL SQ SCH ×4 (07:05→21:35)
[2023-01-26] MEDS: AMINO ACIDS/PROTEIN HYDROLYS 30 ML LIQUID.PKT PO SCH (08:40)
[2023-01-26] MEDS: CEFTRIAXONE 2 GM in DEXTROSE 5%-WATER 100 ML IVPB SCH (09:44)
[2023-01-26] MEDS: oxyCODONE HCL 5 MG TABLET PO PRN ×2 (09:45→18:31)
[2023-01-26] MEDS: CLOPIDOGREL BISULFATE 75 MG TABLET (FP) PO SCH (09:46)
[2023-01-26] MEDS: LACTOBACILLUS ACIDOPHILUS 1 TABLET PO SCH (09:46)
[2023-01-26] MEDS: CARVEDILOL 3.125 MG TABLET (FP) PO SCH ×2 (09:46→22:10)
[2023-01-26] MEDS: MULTIVITAMINS (DAILY MVI) TABLET (FP) PO SCH (09:46)
[2023-01-26] MEDS: busPIRone HCL 10 MG TABLET (FP) PO SCH ×2 (09:46→22:09)
[2023-01-26] MEDS: ASCORBIC ACID 250 MG TABLET (FP) PO SCH (09:46)
[2023-01-26 10:33] LABS: BASO % 0.4 % (0-2.0); HEMATOCRIT 23.7 % (32.4-45.2); LYMPH % 11.9 % (8-40); MCH 28.6 pg (25.7-33.7); MCHC 33.7 g/dl (32.0-36.0); MEAN CELL VOLUME 84.8 fl (80-96); MEAN PLT VOLUME 6.9 fl (7.5-11.1); MONO % 5.3 % (3.8-10.2); NEUT % 81.4 % (42.8-82.8); PLATELET COUNT 375 10^3/uL (134-434); RBC 2.79 M/mm3 (3.60-5.2); RDW 13.5 % (11.6-15.6); WHITE BLOOD COUNT 9.1 K/mm3 (4.0-10.0)
[2023-01-26 10:52] LABS: POTASSIUM 4.3 mmol/L (3.5-5.1)
[2023-01-26 10:53] LABS: CALCIUM 8.2 mg/dL (8.5-10.1)
[2023-01-26 10:54] LABS: BLOOD UREA NITROGEN 35.8 mg/dL (7-18)
[2023-01-26 10:57] LABS: PHOSPHOROUS 3.4 mg/dL (2.5-4.9)
[2023-01-26] MEDS: traMADol HCL 50 MG TABLET PO PRN (13:47)
[2023-01-26] MEDS: ATORVASTATIN CA 10 MG TABLET (FP) PO SCH (22:08)
[2023-01-26] MEDS: MELATONIN 5 MG TABLETS PO SCH (22:08)
[2023-01-26] MEDS: MIRTAZAPINE 15 MG TABLET (FP) PO SCH (22:09)
[2023-01-27] MEDS: HEPARIN NA (PORCINE) 5,000 UNITS/ML 1ML VIAL SQ SCH ×3 (05:25→23:21)
[2023-01-27] MEDS: INSULIN SLIDING SCALE (NOVOLOG) 1 VIAL SQ SCH ×4 (07:00→23:22)
[2023-01-27] MEDS: AMINO ACIDS/PROTEIN HYDROLYS 30 ML LIQUID.PKT PO SCH (08:31)
[2023-01-27] MEDS: ASCORBIC ACID 250 MG TABLET (FP) PO SCH (09:58)
[2023-01-27] MEDS: MULTIVITAMINS (DAILY MVI) TABLET (FP) PO SCH (09:58)
[2023-01-27] MEDS: LACTOBACILLUS ACIDOPHILUS 1 TABLET PO SCH (09:58)
[2023-01-27] MEDS: busPIRone HCL 10 MG TABLET (FP) PO SCH ×2 (09:58→23:21)
[2023-01-27] MEDS: CLOPIDOGREL BISULFATE 75 MG TABLET (FP) PO SCH (09:58)
[2023-01-27] MEDS: CEFTRIAXONE 2 GM in DEXTROSE 5%-WATER 100 ML IVPB SCH (09:59)
[2023-01-27] MEDS: oxyCODONE HCL 5 MG TABLET PO PRN (10:21)
[2023-01-27] MEDS: CARVEDILOL 3.125 MG TABLET (FP) PO SCH ×2 (10:24→23:21)
[2023-01-27 10:30] LABS: BASO % 0.4 % (0-2.0); EOS % 1.6 % (0-4.5); HEMATOCRIT 24.4 % (32.4-45.2); HEMOGLOBIN 7.6 GM/dL (10.7-15.3); LYMPH % 13.6 % (8-40); MCHC 31.1 g/dl (32.0-36.0); MEAN CELL VOLUME 86.8 fl (80-96); MEAN PLT VOLUME 7.1 fl (7.5-11.1); NEUT % 76.4 % (42.8-82.8); PLATELET COUNT 408 10^3/uL (134-434); RBC 2.81 M/mm3 (3.60-5.2); RDW 13.6 % (11.6-15.6); WHITE BLOOD COUNT 9.6 K/mm3 (4.0-10.0)
[2023-01-27 10:51] LABS: CHLORIDE 106 mmol/L (98-107); POTASSIUM 4.9 mmol/L (3.5-5.1); SODIUM 139 mmol/L (136-145)
[2023-01-27 10:56] LABS: ALBUMIN 1.9 g/dl (3.4-5.0); ANION GAP 6 MMOL/L (8-16); BLOOD UREA NITROGEN 29.6 mg/dL (7-18); CALCIUM 8.7 mg/dL (8.5-10.1); CO2 27 mmol/L (21-32); GLUCOSE,RANDOM 165 mg/dL (74-106)
[2023-01-27 10:59] LABS: CREATININE 0.8 mg/dL (0.55-1.3); SGOT/AST < 3 U/L (15-37)
[2023-01-27 11:01] LABS: BILIRUBIN,TOTAL 0.2 mg/dL (0.2-1); TOT PROT 6.8 g/dl (6.4-8.2)
[2023-01-27 11:02] LABS: ALK PHOS 93 U/L (45-117); SGPT/ALT < 6 U/L (13-61)
[2023-01-27 14:06] VITALS: BMI 16.2
[2023-01-27] MEDS: traMADol HCL 50 MG TABLET PO PRN (16:05)
[2023-01-27] MEDS: ACETAMINOPHEN 500 MG TABLET (FP) PO PRN (18:14)
[2023-01-27] MEDS: MIRTAZAPINE 15 MG TABLET (FP) PO SCH (23:22)
[2023-01-27] MEDS: MELATONIN 5 MG TABLETS PO SCH (23:22)
[2023-01-27] MEDS: ATORVASTATIN CA 10 MG TABLET (FP) PO SCH (23:22)
[2023-01-28] MEDS: HEPARIN NA (PORCINE) 5,000 UNITS/ML 1ML VIAL SQ SCH ×3 (06:29→21:50)
[2023-01-28] MEDS: INSULIN SLIDING SCALE (NOVOLOG) 1 VIAL SQ SCH ×4 (06:30→22:32)
[2023-01-28] MEDS: ACETAMINOPHEN 500 MG TABLET (FP) PO PRN ×2 (07:40→14:18)
[2023-01-28] MEDS: oxyCODONE HCL 5 MG TABLET PO PRN ×2 (07:42→14:19)
[2023-01-28] MEDS: AMINO ACIDS/PROTEIN HYDROLYS 30 ML LIQUID.PKT PO SCH (07:43)
[2023-01-28 09:42] LABS: BASO % 0.5 % (0-2.0); EOS % 1.6 % (0-4.5); HEMATOCRIT 21.8 % (32.4-45.2); HEMOGLOBIN 7.2 GM/dL (10.7-15.3); LYMPH % 14.1 % (8-40); MCH 28.1 pg (25.7-33.7); MEAN CELL VOLUME 85.1 fl (80-96); MEAN PLT VOLUME 7.1 fl (7.5-11.1); MONO % 7.9 % (3.8-10.2); NEUT % 75.9 % (42.8-82.8); PLATELET COUNT 418 10^3/uL (134-434); RBC 2.56 M/mm3 (3.60-5.2); RDW 13.6 % (11.6-15.6); WHITE BLOOD COUNT 9.5 K/mm3 (4.0-10.0)
[2023-01-28 09:59] LABS: CHLORIDE 103 mmol/L (98-107); POTASSIUM 4.9 mmol/L (3.5-5.1); SODIUM 137 mmol/L (136-145)
[2023-01-28 10:05] LABS: CALCIUM 8.4 mg/dL (8.5-10.1)
[2023-01-28 10:06] LABS: ANION GAP 3 MMOL/L (8-16); BLOOD UREA NITROGEN 26.1 mg/dL (7-18); CO2 32 mmol/L (21-32); GLUCOSE,RANDOM 120 mg/dL (74-106); MAGNESIUM 2.1 mg/dL (1.8-2.4)
[2023-01-28 10:09] LABS: CREATININE 0.6 mg/dL (0.55-1.3); PHOSPHOROUS 3.2 mg/dL (2.5-4.9); SGOT/AST 6 U/L (15-37)
[2023-01-28 10:10] LABS: BILIRUBIN,TOTAL 0.4 mg/dL (0.2-1); TOT PROT 6.9 g/dl (6.4-8.2)
[2023-01-28 10:11] LABS: ALK PHOS 93 U/L (45-117)
[2023-01-28] MEDS: LACTOBACILLUS ACIDOPHILUS 1 TABLET PO SCH (10:14)
[2023-01-28] MEDS: ASCORBIC ACID 250 MG TABLET (FP) PO SCH (10:14)
[2023-01-28] MEDS: MULTIVITAMINS (DAILY MVI) TABLET (FP) PO SCH (10:14)
[2023-01-28] MEDS: CARVEDILOL 3.125 MG TABLET (FP) PO SCH ×2 (10:14→21:50)
[2023-01-28] MEDS: CLOPIDOGREL BISULFATE 75 MG TABLET (FP) PO SCH (10:14)
[2023-01-28] MEDS: busPIRone HCL 10 MG TABLET (FP) PO SCH ×2 (10:14→21:50)
[2023-01-28] MEDS: CEFTRIAXONE 2 GM in DEXTROSE 5%-WATER 100 ML IVPB SCH (10:14)
[2023-01-28 10:15] LABS: SGPT/ALT < 6 U/L (13-61)
[2023-01-28] MEDS: ATORVASTATIN CA 10 MG TABLET (FP) PO SCH (21:50)
[2023-01-28] MEDS: MELATONIN 5 MG TABLETS PO SCH (21:51)
[2023-01-28] MEDS: MIRTAZAPINE 15 MG TABLET (FP) PO SCH (21:55)
[2023-01-29] MEDS: oxyCODONE HCL 5 MG TABLET PO PRN ×3 (01:20→18:41)
[2023-01-29] MEDS: ACETAMINOPHEN 500 MG TABLET (FP) PO PRN ×2 (01:20→06:28)
[2023-01-29] MEDS: traMADol HCL 50 MG TABLET PO PRN (01:20)
[2023-01-29] MEDS: INSULIN SLIDING SCALE (NOVOLOG) 1 VIAL SQ SCH ×4 (07:04→21:54)
[2023-01-29] MEDS: CEFTRIAXONE 2 GM in DEXTROSE 5%-WATER 100 ML IVPB SCH (10:41)
[2023-01-29] MEDS: ASCORBIC ACID 250 MG TABLET (FP) PO SCH (10:43)
[2023-01-29] MEDS: LACTOBACILLUS ACIDOPHILUS 1 TABLET PO SCH (10:43)
[2023-01-29] MEDS: MULTIVITAMINS (DAILY MVI) TABLET (FP) PO SCH (10:43)
[2023-01-29] MEDS: CARVEDILOL 3.125 MG TABLET (FP) PO SCH ×2 (10:43→21:45)
[2023-01-29] MEDS: busPIRone HCL 10 MG TABLET (FP) PO SCH ×2 (10:43→21:45)
[2023-01-29] MEDS: CLOPIDOGREL BISULFATE 75 MG TABLET (FP) PO SCH (10:44)
[2023-01-29] MEDS: AMINO ACIDS/PROTEIN HYDROLYS 30 ML LIQUID.PKT PO SCH (10:56)
[2023-01-29 11:15] LABS: BASO % 0.5 % (0-2.0); EOS % 1.6 % (0-4.5); HEMATOCRIT 23.7 % (32.4-45.2); HEMOGLOBIN 7.7 GM/dL (10.7-15.3); LYMPH % 18.9 % (8-40); MCH 27.5 pg (25.7-33.7); MCHC 32.3 g/dl (32.0-36.0); MEAN CELL VOLUME 85.3 fl (80-96); MEAN PLT VOLUME 6.9 fl (7.5-11.1); MONO % 7.6 % (3.8-10.2); NEUT % 71.4 % (42.8-82.8); PLATELET COUNT 499 10^3/uL (134-434); RBC 2.79 M/mm3 (3.60-5.2); RDW 13.9 % (11.6-15.6); WHITE BLOOD COUNT 9.2 K/mm3 (4.0-10.0)
[2023-01-29 11:58] LABS: CHLORIDE 106 mmol/L (98-107); SODIUM 141 mmol/L (136-145)
[2023-01-29 12:34] LABS: CALCIUM 8.5 mg/dL (8.5-10.1)
[2023-01-29 12:36] LABS: ANION GAP 6 MMOL/L (8-16); BLOOD UREA NITROGEN 25.4 mg/dL (7-18); CO2 30 mmol/L (21-32); GLUCOSE,RANDOM 97 mg/dL (74-106)
[2023-01-29 12:38] LABS: SGPT/ALT < 6 U/L (13-61)
[2023-01-29 12:39] LABS: BILIRUBIN,TOTAL 0.2 mg/dL (0.2-1); CREATININE 0.7 mg/dL (0.55-1.3); PHOSPHOROUS 3.7 mg/dL (2.5-4.9); SGOT/AST 8 U/L (15-37)
[2023-01-29 12:41] LABS: ALK PHOS 93 U/L (45-117)
[2023-01-29 19:36] LABS: HEMATOCRIT 27.5 % (32.4-45.2); HEMOGLOBIN 9.1 GM/dL (10.7-15.3); MCHC 33.2 g/dl (32.0-36.0); MEAN CELL VOLUME 84.2 fl (80-96); PLATELET COUNT 469 10^3/uL (134-434); RBC 3.27 M/mm3 (3.60-5.2); RDW 13.5 % (11.6-15.6); WHITE BLOOD COUNT 11.1 K/mm3 (4.0-10.0)
[2023-01-29] MEDS: MIRTAZAPINE 15 MG TABLET (FP) PO SCH (21:45)
[2023-01-29] MEDS: ATORVASTATIN CA 10 MG TABLET (FP) PO SCH (21:45)
[2023-01-29] MEDS: MELATONIN 5 MG TABLETS PO SCH (21:46)
[2023-01-30] MEDS: INSULIN SLIDING SCALE (NOVOLOG) 1 VIAL SQ SCH ×4 (06:20→22:26)
[2023-01-30] MEDS: oxyCODONE HCL 5 MG TABLET PO PRN ×3 (06:42→22:25)
[2023-01-30] MEDS: CEFTRIAXONE 2 GM in DEXTROSE 5%-WATER 100 ML IVPB SCH (09:38)
[2023-01-30] MEDS: MULTIVITAMINS (DAILY MVI) TABLET (FP) PO SCH (09:39)
[2023-01-30] MEDS: CLOPIDOGREL BISULFATE 75 MG TABLET (FP) PO SCH (09:39)
[2023-01-30] MEDS: ASCORBIC ACID 250 MG TABLET (FP) PO SCH (09:39)
[2023-01-30] MEDS: AMINO ACIDS/PROTEIN HYDROLYS 30 ML LIQUID.PKT PO SCH (09:39)
[2023-01-30] MEDS: busPIRone HCL 10 MG TABLET (FP) PO SCH ×2 (09:39→22:24)
[2023-01-30] MEDS: LACTOBACILLUS ACIDOPHILUS 1 TABLET PO SCH (09:39)
[2023-01-30] MEDS: CARVEDILOL 3.125 MG TABLET (FP) PO SCH ×2 (09:39→22:25)
[2023-01-30] MEDS ORDERED: IRON SUCROSE INJECTION 100 MG in SODIUM CHLORIDE 95 ML IVPB ONE (10:00)
[2023-01-30 10:21] LABS: BASO % 0.5 % (0-2.0); EOS % 1.3 % (0-4.5); HEMATOCRIT 28.2 % (32.4-45.2); HEMOGLOBIN 8.8 GM/dL (10.7-15.3); LYMPH % 15.5 % (8-40); MCH 26.8 pg (25.7-33.7); MCHC 31.2 g/dl (32.0-36.0); MEAN PLT VOLUME 6.9 fl (7.5-11.1); MONO % 7.1 % (3.8-10.2); NEUT % 75.6 % (42.8-82.8); PLATELET COUNT 538 10^3/uL (134-434); RBC 3.28 M/mm3 (3.60-5.2); RDW 13.4 % (11.6-15.6); WHITE BLOOD COUNT 10.1 K/mm3 (4.0-10.0)
[2023-01-30 10:36] LABS: POTASSIUM 4.7 mmol/L (3.5-5.1)
[2023-01-30 10:41] LABS: CALCIUM 8.4 mg/dL (8.5-10.1)
[2023-01-30 10:43] LABS: CREATININE 0.6 mg/dL (0.55-1.3)
[2023-01-30 10:45] LABS: BILIRUBIN,TOTAL 0.3 mg/dL (0.2-1); TOT PROT 6.9 g/dl (6.4-8.2)
[2023-01-30] MEDS: ACETAMINOPHEN 500 MG TABLET (FP) PO PRN (12:39)
[2023-01-30] MEDS: traMADol HCL 50 MG TABLET PO PRN (15:37)
[2023-01-30] MEDS ORDERED: ACETAMINOPHEN 1000 MG/100 ML BAG IVPB PRN ×2 (15:43→15:49)
[2023-01-30] MEDS: MELATONIN 5 MG TABLETS PO SCH (22:25)
[2023-01-30] MEDS: MIRTAZAPINE 15 MG TABLET (FP) PO SCH (22:25)
[2023-01-30] MEDS: HEPARIN NA (PORCINE) 5,000 UNITS/ML 1ML VIAL SQ SCH (22:27)
[2023-01-30] MEDS: ATORVASTATIN CA 10 MG TABLET (FP) PO SCH (22:27)
[2023-01-31] MEDS: HEPARIN NA (PORCINE) 5,000 UNITS/ML 1ML VIAL SQ SCH ×3 (05:26→23:15)
[2023-01-31] MEDS: INSULIN SLIDING SCALE (NOVOLOG) 1 VIAL SQ SCH ×4 (06:34→23:14)
[2023-01-31 08:11] LABS: BASO % 0.5 % (0-2.0); HEMOGLOBIN 8.7 GM/dL (10.7-15.3); LYMPH % 17.2 % (8-40); MCH 28.8 pg (25.7-33.7); MCHC 33.3 g/dl (32.0-36.0); MEAN CELL VOLUME 86.4 fl (80-96); MEAN PLT VOLUME 6.7 fl (7.5-11.1); MONO % 7.6 % (3.8-10.2); NEUT % 72.7 % (42.8-82.8); PLATELET COUNT 535 10^3/uL (134-434); RBC 3.01 M/mm3 (3.60-5.2); RDW 13.9 % (11.6-15.6)
[2023-01-31 08:25] LABS: CHLORIDE 106 mmol/L (98-107); POTASSIUM 4.7 mmol/L (3.5-5.1); SODIUM 140 mmol/L (136-145)
[2023-01-31 08:31] LABS: BLOOD UREA NITROGEN 22.5 mg/dL (7-18)
[2023-01-31 08:33] LABS: ALBUMIN 1.9 g/dl (3.4-5.0); ANION GAP 3 MMOL/L (8-16); CALCIUM 8.3 mg/dL (8.5-10.1); CO2 32 mmol/L (21-32); GLUCOSE,RANDOM 87 mg/dL (74-106)
[2023-01-31 08:35] LABS: CREATININE 0.7 mg/dL (0.55-1.3); SGOT/AST 6 U/L (15-37)
[2023-01-31 08:36] LABS: TOT PROT 6.8 g/dl (6.4-8.2)
[2023-01-31] MEDS: AMINO ACIDS/PROTEIN HYDROLYS 30 ML LIQUID.PKT PO SCH (08:36)
[2023-01-31 08:37] LABS: ALK PHOS 84 U/L (45-117); BILIRUBIN,TOTAL 0.2 mg/dL (0.2-1)
[2023-01-31 08:57] LABS: SGPT/ALT < 6 U/L (13-61)
[2023-01-31] MEDS ORDERED: IRON SUCROSE INJECTION 100 MG in SODIUM CHLORIDE 95 ML IVPB ONE (09:00)
[2023-01-31] MEDS: ASCORBIC ACID 250 MG TABLET (FP) PO SCH (10:09)
[2023-01-31] MEDS: CARVEDILOL 3.125 MG TABLET (FP) PO SCH ×3 (10:09→23:40)
[2023-01-31] MEDS: LACTOBACILLUS ACIDOPHILUS 1 TABLET PO SCH (10:09)
[2023-01-31] MEDS: busPIRone HCL 10 MG TABLET (FP) PO SCH ×3 (10:09→23:40)
[2023-01-31] MEDS: MULTIVITAMINS (DAILY MVI) TABLET (FP) PO SCH (10:09)
[2023-01-31] MEDS: CLOPIDOGREL BISULFATE 75 MG TABLET (FP) PO SCH (10:10)
[2023-01-31] MEDS: oxyCODONE HCL 5 MG TABLET PO PRN ×2 (11:07→17:12)
[2023-01-31] MEDS: CEFTRIAXONE 2 GM in DEXTROSE 5%-WATER 100 ML IVPB SCH (12:06)
[2023-01-31] MEDS: MELATONIN 5 MG TABLETS PO SCH ×2 (23:06→23:41)
[2023-01-31] MEDS: ATORVASTATIN CA 10 MG TABLET (FP) PO SCH ×2 (23:06→23:40)
[2023-01-31] MEDS: MIRTAZAPINE 15 MG TABLET (FP) PO SCH ×2 (23:06→23:41)
[2023-02-01] MEDS: INSULIN SLIDING SCALE (NOVOLOG) 1 VIAL SQ SCH ×4 (06:05→21:51)
[2023-02-01] MEDS: HEPARIN NA (PORCINE) 5,000 UNITS/ML 1ML VIAL SQ SCH (06:08)
[2023-02-01] MEDS: busPIRone HCL 10 MG TABLET (FP) PO SCH ×2 (09:55→21:51)
[2023-02-01] MEDS: AMINO ACIDS/PROTEIN HYDROLYS 30 ML LIQUID.PKT PO SCH (09:55)
[2023-02-01] MEDS: CEFTRIAXONE 2 GM in DEXTROSE 5%-WATER 100 ML IVPB SCH (09:55)
[2023-02-01] MEDS: CARVEDILOL 3.125 MG TABLET (FP) PO SCH ×2 (09:55→21:50)
[2023-02-01] MEDS: MULTIVITAMINS (DAILY MVI) TABLET (FP) PO SCH (09:56)
[2023-02-01] MEDS: ASCORBIC ACID 250 MG TABLET (FP) PO SCH (09:56)
[2023-02-01] MEDS: LACTOBACILLUS ACIDOPHILUS 1 TABLET PO SCH (09:56)
[2023-02-01 10:29] LABS: INR 1.23 (0.83-1.09); PROTHROMBIN TIME (PATIENT) 14.2 SEC (9.7-13.0)
[2023-02-01 10:32] LABS: ACTIVATED PTT 41.5 SECONDS (25.2-36.5)
[2023-02-01 10:36] LABS: BASO % 0.4 % (0-2.0); EOS % 1.4 % (0-4.5); HEMATOCRIT 27.4 % (32.4-45.2); HEMOGLOBIN 8.9 GM/dL (10.7-15.3); LYMPH % 16.5 % (8-40); MCHC 32.3 g/dl (32.0-36.0); MEAN CELL VOLUME 86.8 fl (80-96); MEAN PLT VOLUME 6.7 fl (7.5-11.1); MONO % 6.3 % (3.8-10.2); NEUT % 75.4 % (42.8-82.8); PLATELET COUNT 581 10^3/uL (134-434); RBC 3.16 M/mm3 (3.60-5.2); RDW 13.7 % (11.6-15.6); WHITE BLOOD COUNT 10.1 K/mm3 (4.0-10.0)
[2023-02-01 10:51] LABS: POTASSIUM 4.3 mmol/L (3.5-5.1)
[2023-02-01] MEDS: LIDOCAINE 4% PATCH TP SCH (10:51)
[2023-02-01 10:58] LABS: BLOOD UREA NITROGEN 19.6 mg/dL (7-18); CALCIUM 8.6 mg/dL (8.5-10.1)
[2023-02-01 11:01] LABS: CREATININE 0.6 mg/dL (0.55-1.3)
[2023-02-01 11:03] LABS: BILIRUBIN,TOTAL 0.5 mg/dL (0.2-1)
[2023-02-01] MEDS: CLOPIDOGREL BISULFATE 75 MG TABLET (FP) PO SCH (11:03)
[2023-02-01] MEDS: MIRTAZAPINE 15 MG TABLET (FP) PO SCH (21:50)
[2023-02-01] MEDS: LIDOCAINE PATCH REMOVAL MC SCH (21:51)
[2023-02-01] MEDS: MELATONIN 5 MG TABLETS PO SCH (21:51)
[2023-02-01] MEDS: ATORVASTATIN CA 10 MG TABLET (FP) PO SCH (21:51)
[2023-02-02] MEDS: INSULIN SLIDING SCALE (NOVOLOG) 1 VIAL SQ SCH ×4 (06:19→22:15)
[2023-02-02] MEDS: busPIRone HCL 10 MG TABLET (FP) PO SCH ×2 (09:34→22:12)
[2023-02-02] MEDS: CARVEDILOL 3.125 MG TABLET (FP) PO SCH ×2 (09:34→22:12)
[2023-02-02] MEDS: LACTOBACILLUS ACIDOPHILUS 1 TABLET PO SCH (09:34)
[2023-02-02] MEDS: MULTIVITAMINS (DAILY MVI) TABLET (FP) PO SCH (09:35)
[2023-02-02] MEDS: ASCORBIC ACID 250 MG TABLET (FP) PO SCH (09:35)
[2023-02-02] MEDS: CEFTRIAXONE 2 GM in DEXTROSE 5%-WATER 100 ML IVPB SCH (09:35)
[2023-02-02 09:59] LABS: BASO % 0.5 % (0-2.0); EOS % 1.7 % (0-4.5); HEMATOCRIT 27.9 % (32.4-45.2); HEMOGLOBIN 8.9 GM/dL (10.7-15.3); MCH 27.8 pg (25.7-33.7); MEAN CELL VOLUME 86.9 fl (80-96); MEAN PLT VOLUME 6.7 fl (7.5-11.1); MONO % 7.4 % (3.8-10.2); NEUT % 71.4 % (42.8-82.8); PLATELET COUNT 547 10^3/uL (134-434); RBC 3.21 M/mm3 (3.60-5.2); RDW 14.3 % (11.6-15.6); WHITE BLOOD COUNT 9.2 K/mm3 (4.0-10.0)
[2023-02-02] MEDS: AMINO ACIDS/PROTEIN HYDROLYS 30 ML LIQUID.PKT PO SCH (10:19)
[2023-02-02] MEDS: LIDOCAINE 4% PATCH TP SCH (10:23)
[2023-02-02 10:24] LABS: POTASSIUM 4.7 mmol/L (3.5-5.1)
[2023-02-02 10:30] LABS: CALCIUM 8.8 mg/dL (8.5-10.1)
[2023-02-02 10:31] LABS: ALBUMIN 2.1 g/dl (3.4-5.0); BLOOD UREA NITROGEN 22.4 mg/dL (7-18)
[2023-02-02 10:34] LABS: CREATININE 0.6 mg/dL (0.55-1.3)
[2023-02-02 10:36] LABS: BILIRUBIN,TOTAL 0.5 mg/dL (0.2-1); TOT PROT 7.1 g/dl (6.4-8.2)
[2023-02-02] MEDS: oxyCODONE HCL 5 MG TABLET PO PRN (15:23)
[2023-02-02] MEDS: MELATONIN 5 MG TABLETS PO SCH (22:12)
[2023-02-02] MEDS: MIRTAZAPINE 15 MG TABLET (FP) PO SCH (22:12)
[2023-02-02] MEDS: ATORVASTATIN CA 10 MG TABLET (FP) PO SCH (22:12)
[2023-02-02] MEDS: LIDOCAINE PATCH REMOVAL MC SCH (22:15)
[2023-02-03] MEDS: INSULIN SLIDING SCALE (NOVOLOG) 1 VIAL SQ SCH ×4 (06:01→21:27)
[2023-02-03] MEDS: LACTOBACILLUS ACIDOPHILUS 1 TABLET PO SCH (09:26)
[2023-02-03] MEDS: MULTIVITAMINS (DAILY MVI) TABLET (FP) PO SCH (09:26)
[2023-02-03] MEDS: ASCORBIC ACID 250 MG TABLET (FP) PO SCH (09:27)
[2023-02-03] MEDS: busPIRone HCL 10 MG TABLET (FP) PO SCH ×2 (09:27→21:26)
[2023-02-03] MEDS: CEFTRIAXONE 2 GM in DEXTROSE 5%-WATER 100 ML IVPB SCH (09:27)
[2023-02-03] MEDS: CARVEDILOL 3.125 MG TABLET (FP) PO SCH ×2 (09:27→21:31)
[2023-02-03] MEDS: AMINO ACIDS/PROTEIN HYDROLYS 30 ML LIQUID.PKT PO SCH (09:37)
[2023-02-03] MEDS: LIDOCAINE 4% PATCH TP SCH (09:38)
[2023-02-03 10:25] LABS: EOS % 1.7 % (0-4.5); HEMATOCRIT 29.4 % (32.4-45.2); HEMOGLOBIN 9.2 GM/dL (10.7-15.3); LYMPH % 19.1 % (8-40); MCH 27.3 pg (25.7-33.7); MCHC 31.3 g/dl (32.0-36.0); MEAN CELL VOLUME 87.4 fl (80-96); MEAN PLT VOLUME 6.9 fl (7.5-11.1); NEUT % 71.2 % (42.8-82.8); PLATELET COUNT 567 10^3/uL (134-434); RBC 3.36 M/mm3 (3.60-5.2); RDW 14.2 % (11.6-15.6); WHITE BLOOD COUNT 10.7 K/mm3 (4.0-10.0)
[2023-02-03 10:43] LABS: POTASSIUM 4.4 mmol/L (3.5-5.1)
[2023-02-03 10:51] LABS: CREATININE 0.6 mg/dL (0.55-1.3)
[2023-02-03 10:52] LABS: TOT PROT 7.5 g/dl (6.4-8.2)
[2023-02-03 10:53] LABS: BILIRUBIN,TOTAL 0.2 mg/dL (0.2-1)
[2023-02-03 10:55] LABS: ALBUMIN 2.2 g/dl (3.4-5.0); BLOOD UREA NITROGEN 27.1 mg/dL (7-18)
[2023-02-03] MEDS: HEPARIN NA (PORCINE) 5,000 UNITS/ML 1ML VIAL SQ SCH ×2 (13:35→21:28)
[2023-02-03] MEDS: MIRTAZAPINE 15 MG TABLET (FP) PO SCH (21:26)
[2023-02-03] MEDS: traMADol HCL 50 MG TABLET PO PRN (21:26)
[2023-02-03] MEDS: ATORVASTATIN CA 10 MG TABLET (FP) PO SCH (21:26)
[2023-02-03] MEDS: MELATONIN 5 MG TABLETS PO SCH (21:26)
[2023-02-03] MEDS: LIDOCAINE PATCH REMOVAL MC SCH (21:28)
[2023-02-03] MEDS: oxyCODONE HCL 5 MG TABLET PO PRN (21:31)
[2023-02-04] MEDS: oxyCODONE HCL 5 MG TABLET PO PRN ×2 (04:26→21:30)
[2023-02-04] MEDS: INSULIN SLIDING SCALE (NOVOLOG) 1 VIAL SQ SCH ×4 (06:46→22:37)
[2023-02-04] MEDS ORDERED: DEXTROSE 5%-NORMAL SALINE 1,000 ML IV SCH (07:30)
[2023-02-04] MEDS ORDERED: DEXTROSE 5%-0.45% SALINE 1,000 ML IV SCH ×2 (07:45→13:53)
[2023-02-04] MEDS: AMINO ACIDS/PROTEIN HYDROLYS 30 ML LIQUID.PKT PO SCH (08:26)
[2023-02-04 08:46] LABS: BASO % 0.7 % (0-2.0); EOS % 2.6 % (0-4.5); HEMATOCRIT 26.9 % (32.4-45.2); HEMOGLOBIN 8.6 GM/dL (10.7-15.3); LYMPH % 24.6 % (8-40); MEAN CELL VOLUME 87.7 fl (80-96); MEAN PLT VOLUME 6.6 fl (7.5-11.1); MONO % 8.3 % (3.8-10.2); NEUT % 63.8 % (42.8-82.8); PLATELET COUNT 451 10^3/uL (134-434); RBC 3.07 M/mm3 (3.60-5.2); RDW 14.1 % (11.6-15.6); WHITE BLOOD COUNT 9.1 K/mm3 (4.0-10.0)
[2023-02-04 09:03] LABS: POTASSIUM 4.4 mmol/L (3.5-5.1)
[2023-02-04 09:08] LABS: ALBUMIN 2.1 g/dl (3.4-5.0); CALCIUM 8.4 mg/dL (8.5-10.1)
[2023-02-04 09:10] LABS: CREATININE 0.5 mg/dL (0.55-1.3)
[2023-02-04 09:12] LABS: BILIRUBIN,TOTAL 0.2 mg/dL (0.2-1)
[2023-02-04] MEDS: CEFTRIAXONE 2 GM in DEXTROSE 5%-WATER 100 ML IVPB SCH (10:24)
[2023-02-04] MEDS: LACTOBACILLUS ACIDOPHILUS 1 TABLET PO SCH (10:56)
[2023-02-04] MEDS: LIDOCAINE 4% PATCH TP SCH (10:56)
[2023-02-04] MEDS: ASCORBIC ACID 250 MG TABLET (FP) PO SCH (10:57)
[2023-02-04] MEDS: CARVEDILOL 3.125 MG TABLET (FP) PO SCH ×2 (10:57→22:37)
[2023-02-04] MEDS: MULTIVITAMINS (DAILY MVI) TABLET (FP) PO SCH (10:57)
[2023-02-04] MEDS: busPIRone HCL 10 MG TABLET (FP) PO SCH ×2 (10:57→22:37)
[2023-02-04] MEDS ORDERED: SUCCINYLCHOLINE CHLORIDE 200 MG/10 ML SYRINGE ONE (12:25)
[2023-02-04] MEDS ORDERED: PROPOFOL 20 ML ONE (12:25)
[2023-02-04] MEDS ORDERED: FENTANYL CITRATE/PF 50 MCG/ML VIAL ONE (12:25)
[2023-02-04] MEDS ORDERED: DEXAMETHASONE SOD PHOSPHATE 4 MG/1 ML VIAL ONE (13:22)
[2023-02-04] MEDS ORDERED: ONDANSETRON 4 MG/2 ML VIAL ONE (13:22)
[2023-02-04] MEDS ORDERED: KETOROLAC TROMETHAMINE 30 MG/1 ML VIAL ONE (13:22)
[2023-02-04] MEDS ORDERED: ONDANSETRON 4 MG/2 ML VIAL IVPUSH PRN ×2 (13:41→13:53)
[2023-02-04] MEDS ORDERED: oxyCODONE HCL 5 MG TABLET PO PRN ×2 (13:41→13:53)
[2023-02-04] MEDS ORDERED: LACTATED RINGERS SOLUTION 1,000 ML IV SCH (13:45)
[2023-02-04] MEDS: HEPARIN NA (PORCINE) 5,000 UNITS/ML 1ML VIAL SQ SCH ×2 (15:24→22:37)
[2023-02-04] MEDS: LACTATED RINGERS SOLUTION 1,000 ML IV SCH (15:25)
[2023-02-04] MEDS: traMADol HCL 50 MG TABLET PO PRN (21:30)
[2023-02-04] MEDS ORDERED: LIDOCAINE PATCH REMOVAL MC SCH (22:00)
[2023-02-04] MEDS: ATORVASTATIN CA 10 MG TABLET (FP) PO SCH (22:37)
[2023-02-04] MEDS: LIDOCAINE PATCH REMOVAL MC SCH (22:37)
[2023-02-04] MEDS: MIRTAZAPINE 15 MG TABLET (FP) PO SCH (22:37)
[2023-02-04] MEDS: MELATONIN 5 MG TABLETS PO SCH (22:37)
[2023-02-05] MEDS: HEPARIN NA (PORCINE) 5,000 UNITS/ML 1ML VIAL SQ SCH (05:03)
[2023-02-05] MEDS: oxyCODONE HCL 5 MG TABLET PO PRN ×2 (05:25→11:56)
[2023-02-05] MEDS: INSULIN SLIDING SCALE (NOVOLOG) 1 VIAL SQ SCH ×4 (07:03→22:46)
[2023-02-05] MEDS ORDERED: CLOPIDOGREL BISULFATE 75 MG TABLET (FP) PO SCH (10:00)
[2023-02-05 11:12] LABS: BASO % 0.4 % (0-2.0); EOS % 0.8 % (0-4.5); HEMATOCRIT 22.8 % (32.4-45.2); LYMPH % 15.9 % (8-40); MCH 26.9 pg (25.7-33.7); MCHC 30.6 g/dl (32.0-36.0); MEAN PLT VOLUME 7.1 fl (7.5-11.1); MONO % 5.4 % (3.8-10.2); NEUT % 77.5 % (42.8-82.8); PLATELET COUNT 469 10^3/uL (134-434); RBC 2.59 M/mm3 (3.60-5.2); RDW 14.1 % (11.6-15.6); WHITE BLOOD COUNT 13.8 K/mm3 (4.0-10.0)
[2023-02-05 11:34] LABS: POTASSIUM 4.9 mmol/L (3.5-5.1)
[2023-02-05 11:37] LABS: BLOOD UREA NITROGEN 32.5 mg/dL (7-18)
[2023-02-05 11:39] LABS: CREATININE 0.8 mg/dL (0.55-1.3)
[2023-02-05 11:41] LABS: BILIRUBIN,TOTAL 0.1 mg/dL (0.2-1); TOT PROT 6.5 g/dl (6.4-8.2)
[2023-02-05] MEDS: AMINO ACIDS/PROTEIN HYDROLYS 30 ML LIQUID.PKT PO SCH ×2 (11:55→12:38)
[2023-02-05] MEDS: LIDOCAINE 4% PATCH TP SCH (11:56)
[2023-02-05] MEDS: CEFTRIAXONE 2 GM in DEXTROSE 5%-WATER 100 ML IVPB SCH (11:56)
[2023-02-05] MEDS: MULTIVITAMINS (DAILY MVI) TABLET (FP) PO SCH (11:59)
[2023-02-05] MEDS: busPIRone HCL 10 MG TABLET (FP) PO SCH ×3 (11:59→23:07)
[2023-02-05] MEDS: ASCORBIC ACID 250 MG TABLET (FP) PO SCH (11:59)
[2023-02-05] MEDS: CARVEDILOL 3.125 MG TABLET (FP) PO SCH ×3 (11:59→23:07)
[2023-02-05] MEDS: LACTOBACILLUS ACIDOPHILUS 1 TABLET PO SCH (11:59)
[2023-02-05] MEDS: LACTATED RINGERS SOLUTION 1,000 ML IV SCH (19:56)
[2023-02-05] MEDS: MELATONIN 5 MG TABLETS PO SCH (22:32)
[2023-02-05] MEDS: MIRTAZAPINE 15 MG TABLET (FP) PO SCH (22:32)
[2023-02-05] MEDS: ATORVASTATIN CA 10 MG TABLET (FP) PO SCH (22:33)
[2023-02-05] MEDS: APIXABAN 2.5 MG TABLET PO SCH (22:46)
[2023-02-05] MEDS: LIDOCAINE PATCH REMOVAL MC SCH (23:09)
[2023-02-06] MEDS: oxyCODONE HCL 5 MG TABLET PO PRN ×3 (03:46→18:50)
[2023-02-06] MEDS: INSULIN SLIDING SCALE (NOVOLOG) 1 VIAL SQ SCH ×4 (06:50→22:36)
[2023-02-06] MEDS: AMINO ACIDS/PROTEIN HYDROLYS 30 ML LIQUID.PKT PO SCH (08:51)
[2023-02-06] MEDS: CEFTRIAXONE 2 GM in DEXTROSE 5%-WATER 100 ML IVPB SCH (10:14)
[2023-02-06] MEDS: LIDOCAINE 4% PATCH TP SCH (10:15)
[2023-02-06] MEDS: ASCORBIC ACID 250 MG TABLET (FP) PO SCH (10:16)
[2023-02-06] MEDS: LACTOBACILLUS ACIDOPHILUS 1 TABLET PO SCH (10:16)
[2023-02-06] MEDS: busPIRone HCL 10 MG TABLET (FP) PO SCH ×2 (10:16→21:48)
[2023-02-06] MEDS: APIXABAN 2.5 MG TABLET PO SCH ×2 (10:16→21:49)
[2023-02-06] MEDS: CARVEDILOL 3.125 MG TABLET (FP) PO SCH ×2 (10:16→21:49)
[2023-02-06] MEDS: MULTIVITAMINS (DAILY MVI) TABLET (FP) PO SCH (10:16)
[2023-02-06 12:50] LABS: POTASSIUM 4.6 mmol/L (3.5-5.1)
[2023-02-06 12:54] LABS: ALBUMIN 1.9 g/dl (3.4-5.0); BASO % 0.6 % (0-2.0); BLOOD UREA NITROGEN 26.4 mg/dL (7-18); EOS % 1.9 % (0-4.5); HEMATOCRIT 20.8 % (32.4-45.2); LYMPH % 14.9 % (8-40); MCH 27.9 pg (25.7-33.7); MCHC 32.4 g/dl (32.0-36.0); MEAN CELL VOLUME 86.4 fl (80-96); MEAN PLT VOLUME 7.3 fl (7.5-11.1); MONO % 6.9 % (3.8-10.2); NEUT % 75.7 % (42.8-82.8); PLATELET COUNT 405 10^3/uL (134-434); RDW 14.7 % (11.6-15.6); WHITE BLOOD COUNT 10.9 K/mm3 (4.0-10.0)
[2023-02-06 12:59] LABS: BILIRUBIN,TOTAL 0.1 mg/dL (0.2-1); TOT PROT 6.2 g/dl (6.4-8.2)
[2023-02-06 13:00] LABS: CREATININE 0.6 mg/dL (0.55-1.3); HEMOGLOBIN 6.7 GM/dL (10.7-15.3)
[2023-02-06 13:04] LABS: IRON SERUM 14 ug/dL (50-175)
[2023-02-06 13:05] LABS: TOTAL IRON BINDING CAPACITY 151 ug/dL (250-450)
[2023-02-06] MEDS: traMADol HCL 50 MG TABLET PO PRN (13:57)
[2023-02-06] MEDS: LACTATED RINGERS SOLUTION 1,000 ML IV SCH (13:58)
[2023-02-06] MEDS: MELATONIN 5 MG TABLETS PO SCH (21:48)
[2023-02-06] MEDS: ATORVASTATIN CA 10 MG TABLET (FP) PO SCH (21:48)
[2023-02-06] MEDS: LIDOCAINE PATCH REMOVAL MC SCH (21:53)
[2023-02-06] MEDS: MIRTAZAPINE 15 MG TABLET (FP) PO SCH (21:55)
[2023-02-07] MEDS: INSULIN SLIDING SCALE (NOVOLOG) 1 VIAL SQ SCH ×4 (06:53→22:06)
[2023-02-07 09:12] LABS: BASO % 0.5 % (0-2.0); EOS % 0.8 % (0-4.5); HEMATOCRIT 32.8 % (32.4-45.2); HEMOGLOBIN 10.6 GM/dL (10.7-15.3); LYMPH % 13.3 % (8-40); MCHC 32.4 g/dl (32.0-36.0); MEAN CELL VOLUME 86.4 fl (80-96); MEAN PLT VOLUME 7.2 fl (7.5-11.1); MONO % 5.4 % (3.8-10.2); PLATELET COUNT 406 10^3/uL (134-434); RDW 13.6 % (11.6-15.6); WHITE BLOOD COUNT 12.8 K/mm3 (4.0-10.0)
[2023-02-07] MEDS: busPIRone HCL 10 MG TABLET (FP) PO SCH ×2 (10:19→21:56)
[2023-02-07] MEDS: LACTOBACILLUS ACIDOPHILUS 1 TABLET PO SCH (10:19)
[2023-02-07] MEDS: ASCORBIC ACID 250 MG TABLET (FP) PO SCH (10:20)
[2023-02-07] MEDS: APIXABAN 2.5 MG TABLET PO SCH ×2 (10:20→21:56)
[2023-02-07] MEDS: CARVEDILOL 3.125 MG TABLET (FP) PO SCH (10:20)
[2023-02-07] MEDS: MULTIVITAMINS (DAILY MVI) TABLET (FP) PO SCH (10:20)
[2023-02-07] MEDS: CEFTRIAXONE 2 GM in DEXTROSE 5%-WATER 100 ML IVPB SCH (10:21)
[2023-02-07] MEDS: LIDOCAINE 4% PATCH TP SCH (10:22)
[2023-02-07] MEDS: AMINO ACIDS/PROTEIN HYDROLYS 30 ML LIQUID.PKT PO SCH (10:27)
[2023-02-07] MEDS: LACTATED RINGERS SOLUTION 1,000 ML IV SCH (14:28)
[2023-02-07] MEDS: MELATONIN 5 MG TABLETS PO SCH (21:56)
[2023-02-07] MEDS: ATORVASTATIN CA 10 MG TABLET (FP) PO SCH (21:56)
[2023-02-07] MEDS: CARVEDILOL 6.25 MG TABLET (FP) PO SCH (21:56)
[2023-02-07] MEDS: LIDOCAINE PATCH REMOVAL MC SCH (21:56)
[2023-02-07] MEDS: MIRTAZAPINE 15 MG TABLET (FP) PO SCH (21:56)
[2023-02-07] MEDS: oxyCODONE HCL 5 MG TABLET PO PRN (23:01)
[2023-02-08] MEDS: LACTATED RINGERS SOLUTION 1,000 ML IV SCH (00:33)
[2023-02-08] MEDS: traMADol HCL 50 MG TABLET PO PRN (00:36)
[2023-02-08] MEDS: INSULIN SLIDING SCALE (NOVOLOG) 1 VIAL SQ SCH ×4 (06:10→21:59)
[2023-02-08] MEDS ORDERED: INSULIN (LEVEMIR) 100 UNITS/ML UNITS SQ ONE (06:29)
[2023-02-08] MEDS: CARVEDILOL 6.25 MG TABLET (FP) PO SCH ×4 (10:12→22:00)
[2023-02-08] MEDS: busPIRone HCL 10 MG TABLET (FP) PO SCH ×4 (10:12→22:00)
[2023-02-08] MEDS: ASCORBIC ACID 250 MG TABLET (FP) PO SCH ×3 (10:12→12:46)
[2023-02-08] MEDS: oxyCODONE HCL 5 MG TABLET PO PRN (10:12)
[2023-02-08] MEDS: AMINO ACIDS/PROTEIN HYDROLYS 30 ML LIQUID.PKT PO SCH ×2 (10:13→10:19)
[2023-02-08] MEDS: MULTIVITAMINS (DAILY MVI) TABLET (FP) PO SCH ×3 (10:13→12:46)
[2023-02-08] MEDS: APIXABAN 2.5 MG TABLET PO SCH ×4 (10:13→22:00)
[2023-02-08] MEDS: LACTOBACILLUS ACIDOPHILUS 1 TABLET PO SCH ×3 (10:13→12:46)
[2023-02-08] MEDS: LIDOCAINE 4% PATCH TP SCH (10:13)
[2023-02-08] MEDS: CEFTRIAXONE 2 GM in DEXTROSE 5%-WATER 100 ML IVPB SCH (10:14)
[2023-02-08 10:26] LABS: BASO % 0.6 % (0-2.0); EOS % 2.1 % (0-4.5); HEMOGLOBIN 10.3 GM/dL (10.7-15.3); LYMPH % 21.6 % (8-40); MCH 29.2 pg (25.7-33.7); MCHC 34.4 g/dl (32.0-36.0); MEAN CELL VOLUME 84.7 fl (80-96); MEAN PLT VOLUME 7.5 fl (7.5-11.1); MONO % 7.1 % (3.8-10.2); NEUT % 68.6 % (42.8-82.8); PLATELET COUNT 369 10^3/uL (134-434); RBC 3.55 M/mm3 (3.60-5.2)
[2023-02-08 10:52] LABS: CALCIUM 7.9 mg/dL (8.5-10.1)
[2023-02-08 10:53] LABS: BLOOD UREA NITROGEN 19.1 mg/dL (7-18)
[2023-02-08 10:56] LABS: CREATININE 0.6 mg/dL (0.55-1.3)
[2023-02-08] MEDS: MIRTAZAPINE 15 MG TABLET (FP) PO SCH (22:00)
[2023-02-08] MEDS: MELATONIN 5 MG TABLETS PO SCH (22:01)
[2023-02-08] MEDS: LIDOCAINE PATCH REMOVAL MC SCH (22:01)
[2023-02-08] MEDS: ATORVASTATIN CA 10 MG TABLET (FP) PO SCH (22:01)
[2023-02-08] MEDS: LATANOPROST 0.005% OPHTH SOLN 2.5ML BOTTLE OS SCH (22:01)
[2023-02-09] MEDS: INSULIN SLIDING SCALE (NOVOLOG) 1 VIAL SQ SCH ×4 (06:28→23:01)
[2023-02-09] MEDS: AMINO ACIDS/PROTEIN HYDROLYS 30 ML LIQUID.PKT PO SCH (09:00)
[2023-02-09] MEDS: busPIRone HCL 10 MG TABLET (FP) PO SCH ×2 (11:42→22:47)
[2023-02-09] MEDS: APIXABAN 2.5 MG TABLET PO SCH ×2 (11:42→22:49)
[2023-02-09] MEDS: LACTOBACILLUS ACIDOPHILUS 1 TABLET PO SCH (11:42)
[2023-02-09] MEDS: MULTIVITAMINS (DAILY MVI) TABLET (FP) PO SCH (11:42)
[2023-02-09] MEDS: CEFTRIAXONE 2 GM in DEXTROSE 5%-WATER 100 ML IVPB SCH (11:42)
[2023-02-09] MEDS: ASCORBIC ACID 250 MG TABLET (FP) PO SCH (11:42)
[2023-02-09] MEDS: CARVEDILOL 6.25 MG TABLET (FP) PO SCH ×2 (11:42→22:46)
[2023-02-09] MEDS: LIDOCAINE 4% PATCH TP SCH (11:52)
[2023-02-09 12:15] LABS: BASO % 0.6 % (0-2.0); EOS % 2.3 % (0-4.5); HEMATOCRIT 31.6 % (32.4-45.2); LYMPH % 15.3 % (8-40); MCHC 34.9 g/dl (32.0-36.0); MEAN CELL VOLUME 85.8 fl (80-96); MEAN PLT VOLUME 7.9 fl (7.5-11.1); MONO % 6.7 % (3.8-10.2); NEUT % 75.1 % (42.8-82.8); PLATELET COUNT 364 10^3/uL (134-434); RBC 3.68 M/mm3 (3.60-5.2); RDW 13.9 % (11.6-15.6); WHITE BLOOD COUNT 9.1 K/mm3 (4.0-10.0)
[2023-02-09 12:43] LABS: POTASSIUM 4.1 mmol/L (3.5-5.1)
[2023-02-09 12:45] LABS: BLOOD UREA NITROGEN 20.1 mg/dL (7-18); CALCIUM 8.3 mg/dL (8.5-10.1)
[2023-02-09 12:46] LABS: ALBUMIN 2.1 g/dl (3.4-5.0)
[2023-02-09 12:49] LABS: CREATININE 0.6 mg/dL (0.55-1.3)
[2023-02-09 12:50] LABS: BILIRUBIN,TOTAL 0.3 mg/dL (0.2-1); TOT PROT 6.9 g/dl (6.4-8.2)
[2023-02-09] MEDS: ATORVASTATIN CA 10 MG TABLET (FP) PO SCH (22:47)
[2023-02-09] MEDS: MIRTAZAPINE 15 MG TABLET (FP) PO SCH (22:52)
[2023-02-09] MEDS: MELATONIN 5 MG TABLETS PO SCH (22:53)
[2023-02-09] MEDS: LIDOCAINE PATCH REMOVAL MC SCH (22:54)
[2023-02-09] MEDS: LATANOPROST 0.005% OPHTH SOLN 2.5ML BOTTLE OS SCH (22:55)
[2023-02-10] MEDS: INSULIN SLIDING SCALE (NOVOLOG) 1 VIAL SQ SCH ×4 (06:41→21:50)
[2023-02-10] MEDS: CARVEDILOL 6.25 MG TABLET (FP) PO SCH ×2 (09:14→21:49)
[2023-02-10] MEDS: LACTOBACILLUS ACIDOPHILUS 1 TABLET PO SCH (09:14)
[2023-02-10] MEDS: ASCORBIC ACID 250 MG TABLET (FP) PO SCH (09:14)
[2023-02-10] MEDS: APIXABAN 2.5 MG TABLET PO SCH ×2 (09:14→21:49)
[2023-02-10] MEDS: AMINO ACIDS/PROTEIN HYDROLYS 30 ML LIQUID.PKT PO SCH (09:14)
[2023-02-10] MEDS: busPIRone HCL 10 MG TABLET (FP) PO SCH ×2 (09:14→21:49)
[2023-02-10] MEDS: MULTIVITAMINS (DAILY MVI) TABLET (FP) PO SCH (09:14)
[2023-02-10] MEDS: LIDOCAINE 4% PATCH TP SCH (09:24)
[2023-02-10 09:33] LABS: HEMATOCRIT 31.5 % (32.4-45.2); HEMOGLOBIN 10.5 GM/dL (10.7-15.3); MCH 28.8 pg (25.7-33.7); MCHC 33.5 g/dl (32.0-36.0); MEAN CELL VOLUME 86.1 fl (80-96); MEAN PLT VOLUME 7.5 fl (7.5-11.1); PLATELET COUNT 376 10^3/uL (134-434); RBC 3.66 M/mm3 (3.60-5.2); RDW 14.2 % (11.6-15.6); WHITE BLOOD COUNT 9.4 K/mm3 (4.0-10.0)
[2023-02-10 09:49] LABS: POTASSIUM 4.3 mmol/L (3.5-5.1)
[2023-02-10 09:57] LABS: CALCIUM 8.4 mg/dL (8.5-10.1)
[2023-02-10 09:58] LABS: ALBUMIN 2.1 g/dl (3.4-5.0); BLOOD UREA NITROGEN 22.5 mg/dL (7-18); MAGNESIUM 1.9 mg/dL (1.8-2.4)
[2023-02-10 10:01] LABS: CREATININE 0.6 mg/dL (0.55-1.3); PHOSPHOROUS 3.4 mg/dL (2.5-4.9)
[2023-02-10 10:02] LABS: BILIRUBIN,TOTAL 0.4 mg/dL (0.2-1)
[2023-02-10 10:03] LABS: TOT PROT 6.8 g/dl (6.4-8.2)
[2023-02-10] MEDS: LIDOCAINE PATCH REMOVAL MC SCH (21:49)
[2023-02-10] MEDS: ATORVASTATIN CA 10 MG TABLET (FP) PO SCH (21:49)
[2023-02-10] MEDS: MIRTAZAPINE 15 MG TABLET (FP) PO SCH (21:49)
[2023-02-10] MEDS: MELATONIN 5 MG TABLETS PO SCH (21:49)
[2023-02-10] MEDS: LATANOPROST 0.005% OPHTH SOLN 2.5ML BOTTLE OS SCH (21:50)
[2023-02-11] MEDS: INSULIN SLIDING SCALE (NOVOLOG) 1 VIAL SQ SCH ×5 (06:00→21:24)
[2023-02-11 09:17] LABS: HEMOGLOBIN 10.5 GM/dL (10.7-15.3); MCH 28.1 pg (25.7-33.7); MCHC 31.9 g/dl (32.0-36.0); MEAN CELL VOLUME 87.9 fl (80-96); MEAN PLT VOLUME 7.6 fl (7.5-11.1); PLATELET COUNT 392 10^3/uL (134-434); RBC 3.75 M/mm3 (3.60-5.2); RDW 13.9 % (11.6-15.6)
[2023-02-11 09:37] LABS: POTASSIUM 4.4 mmol/L (3.5-5.1)
[2023-02-11 09:41] LABS: ALBUMIN 2.2 g/dl (3.4-5.0); BLOOD UREA NITROGEN 17.9 mg/dL (7-18)
[2023-02-11 09:44] LABS: CREATININE 0.5 mg/dL (0.55-1.3)
[2023-02-11 09:45] LABS: BILIRUBIN,TOTAL 0.9 mg/dL (0.2-1); TOT PROT 7.1 g/dl (6.4-8.2)
[2023-02-11] MEDS: LACTOBACILLUS ACIDOPHILUS 1 TABLET PO SCH (10:36)
[2023-02-11] MEDS: CARVEDILOL 6.25 MG TABLET (FP) PO SCH ×2 (10:36→21:15)
[2023-02-11] MEDS: AMINO ACIDS/PROTEIN HYDROLYS 30 ML LIQUID.PKT PO SCH (10:36)
[2023-02-11] MEDS: LIDOCAINE 4% PATCH TP SCH (10:36)
[2023-02-11] MEDS: MULTIVITAMINS (DAILY MVI) TABLET (FP) PO SCH (10:36)
[2023-02-11] MEDS: ASCORBIC ACID 250 MG TABLET (FP) PO SCH (10:37)
[2023-02-11] MEDS: APIXABAN 2.5 MG TABLET PO SCH ×2 (10:37→21:15)
[2023-02-11] MEDS: busPIRone HCL 10 MG TABLET (FP) PO SCH ×2 (10:37→21:15)
[2023-02-11] MEDS ORDERED: SODIUM CHLORIDE 250 ML IV STA (12:39)
[2023-02-11] MEDS ORDERED: ACETAMINOPHEN 1000 MG/100 ML BAG IVPB PRN (15:20)
[2023-02-11] MEDS: MIRTAZAPINE 15 MG TABLET (FP) PO SCH (21:15)
[2023-02-11] MEDS: ATORVASTATIN CA 10 MG TABLET (FP) PO SCH (21:15)
[2023-02-11] MEDS: MELATONIN 5 MG TABLETS PO SCH (21:16)
[2023-02-11] MEDS: LIDOCAINE PATCH REMOVAL MC SCH (21:16)
[2023-02-11] MEDS: LATANOPROST 0.005% OPHTH SOLN 2.5ML BOTTLE OS SCH (21:21)
[2023-02-12] MEDS: INSULIN SLIDING SCALE (NOVOLOG) 1 VIAL SQ SCH ×4 (06:00→22:34)
[2023-02-12 06:43] VITALS: RESP 18
[2023-02-12] MEDS: ASCORBIC ACID 250 MG TABLET (FP) PO SCH (10:55)
[2023-02-12] MEDS: busPIRone HCL 10 MG TABLET (FP) PO SCH ×2 (10:55→22:17)
[2023-02-12] MEDS: MULTIVITAMINS (DAILY MVI) TABLET (FP) PO SCH (10:55)
[2023-02-12] MEDS: LACTOBACILLUS ACIDOPHILUS 1 TABLET PO SCH (10:55)
[2023-02-12] MEDS: APIXABAN 2.5 MG TABLET PO SCH ×2 (10:55→22:14)
[2023-02-12] MEDS: CARVEDILOL 6.25 MG TABLET (FP) PO SCH ×2 (10:55→22:14)
[2023-02-12] MEDS: AMINO ACIDS/PROTEIN HYDROLYS 30 ML LIQUID.PKT PO SCH (10:56)
[2023-02-12] MEDS: LIDOCAINE 4% PATCH TP SCH (10:56)
[2023-02-12] MEDS: MELATONIN 5 MG TABLETS PO SCH (22:14)
[2023-02-12] MEDS: MIRTAZAPINE 15 MG TABLET (FP) PO SCH (22:14)
[2023-02-12] MEDS: ATORVASTATIN CA 10 MG TABLET (FP) PO SCH (22:15)
[2023-02-12] MEDS: LATANOPROST 0.005% OPHTH SOLN 2.5ML BOTTLE OS SCH (22:17)
[2023-02-12] MEDS: LIDOCAINE PATCH REMOVAL MC SCH (22:34)
[2023-02-13] MEDS: INSULIN SLIDING SCALE (NOVOLOG) 1 VIAL SQ SCH ×3 (06:32→16:59)
[2023-02-13] MEDS: LACTOBACILLUS ACIDOPHILUS 1 TABLET PO SCH (09:35)
[2023-02-13] MEDS: busPIRone HCL 10 MG TABLET (FP) PO SCH (09:35)
[2023-02-13] MEDS: CARVEDILOL 6.25 MG TABLET (FP) PO SCH (09:35)
[2023-02-13] MEDS: LIDOCAINE 4% PATCH TP SCH (09:36)
[2023-02-13] MEDS: AMINO ACIDS/PROTEIN HYDROLYS 30 ML LIQUID.PKT PO SCH (09:36)
[2023-02-13] MEDS: ASCORBIC ACID 250 MG TABLET (FP) PO SCH (09:36)
[2023-02-13] MEDS: APIXABAN 2.5 MG TABLET PO SCH (09:36)
[2023-02-13] MEDS: MULTIVITAMINS (DAILY MVI) TABLET (FP) PO SCH (09:37)
[2023-02-13] MEDS ORDERED: FERROUS SO4 325 MG TABLET (FP) PO SCH (10:00)
[2023-02-13 13:17] LABS: BASO % 0.8 % (0-2.0); EOS % 3.1 % (0-4.5); HEMATOCRIT 33.2 % (32.4-45.2); HEMOGLOBIN 10.5 GM/dL (10.7-15.3); MCH 27.9 pg (25.7-33.7); MCHC 31.7 g/dl (32.0-36.0); MEAN PLT VOLUME 7.5 fl (7.5-11.1); MONO % 6.8 % (3.8-10.2); NEUT % 66.3 % (42.8-82.8); PLATELET COUNT 391 10^3/uL (134-434); RBC 3.77 M/mm3 (3.60-5.2); WHITE BLOOD COUNT 7.6 K/mm3 (4.0-10.0)
[2023-02-13 13:33] LABS: CALCIUM 8.4 mg/dL (8.5-10.1)
[2023-02-13 13:34] LABS: ALBUMIN 2.3 g/dl (3.4-5.0); BLOOD UREA NITROGEN 22.8 mg/dL (7-18)
[2023-02-13 13:37] LABS: CREATININE 0.5 mg/dL (0.55-1.3)
[2023-02-13 13:38] LABS: BILIRUBIN,TOTAL 0.5 mg/dL (0.2-1)
[2023-02-13 16:38] VITALS: BP 148/63; PULSE 72; TEMP 97.7
== END 2023-02-13 17:54 | DRG 270 ==
LOC: JER 13:33 → JERBED 16:41 → J5S 19:52
PROVIDERS: ADMIT Internal Medicine
PROC: 047L3ZZ Dilation of Left Femoral Artery, Percutaneous Approach (ICD-10-PCS; 2023-01-22)
PROC: B41DYZZ Fluoroscopy of Aorta and Bilateral Lower Extremity Arteries using Other Contrast (ICD-10-PCS; 2023-01-22)
PROC: 04CL3ZZ Extirpation of Matter from Left Femoral Artery, Percutaneous Approach (ICD-10-PCS; principal; 2023-01-22 13:30)
PROC: 30233N1 Transfusion of Nonautologous Red Blood Cells into Peripheral Vein, Percutaneous Approach (ICD-10-PCS; 2023-01-29)
PROC: 0Y6J0Z2 Detachment at Left Lower Leg, Mid, Open Approach (ICD-10-PCS; 2023-02-04)
DX: T82.856A Stenosis of peripheral vascular stent, initial encounter (principal); E43 Unspecified severe protein-calorie malnutrition; E11.52 Type 2 diabetes mellitus with diabetic peripheral angiopathy with gangrene; I96 Gangrene, not elsewhere classified; M86.8X7 Other osteomyelitis, ankle and foot; Z68.1 Body mass index [BMI] 19.9 or less, adult; R64 Cachexia; G93.1 Anoxic brain damage, not elsewhere classified; M79.672 Pain in left foot; E78.5 Hyperlipidemia, unspecified; Z89.519 Acquired absence of unspecified leg below knee; E11.69 Type 2 diabetes mellitus with other specified complication; D64.9 Anemia, unspecified; I48.0 Paroxysmal atrial fibrillation; E83.52 Hypercalcemia; E86.0 Dehydration; N18.30 Chronic kidney disease, stage 3 unspecified; I12.9 Hypertensive chronic kidney disease with stage 1 through stage 4 chronic kidney disease, or unspecified chronic kidney disease; Y83.9 Surgical procedure, unspecified as the cause of abnormal reaction of the patient, or of later complication, without mention of misadventure at the time of the procedure
CPT/HCPCS: 36415; 36430; 71045-TC-FY; 73610-TC-LT-FY; 73630-TC-LT; 75635-TC; 76000-TC-FY; 80048; 80053; 82272; 82550; 82607; 82728; 82746; 82962; 83540; 83550; 83735; 84100; 85025; 85027; 85379; 85384; 85610; 85730; 86140; 86850; 86900; 86901; 86922; 87040; 87635; 88307-TC; 88311-TC; 93005; 93010; 93306-TC; 93926-TC; 94760; 97161-GP; 99285-25; C1724; C1760; C1769; C2623; G0463-25; J1644; J1756; P9058; Q9967

== ENCOUNTER 2024-04-18 10:04 | Emergency (ER) | payer OTHER ==
[2024-04-18 11:14] VITALS: BP 116/45; PULSE 72; RESP 18; TEMP 98.5; BMI 15.5
[2024-04-18] MEDS: morphine CARPU-JECT 2 MG/1 ML DISP.SYRIN IVPUSH ONE (18:30)
== END 2024-04-18 19:25 | disposition short-term general hospital (02) ==
LOC: JER 10:04
DX: S72.491A Other fracture of lower end of right femur, initial encounter for closed fracture (principal); L02.222 Furuncle of back [any part, except buttock and flank]; Y04.0XXA Assault by unarmed brawl or fight, initial encounter
CPT/HCPCS: 72170-TC-FY; 73552-TC-RT-FY; 99285-25

== ENCOUNTER 2024-12-21 10:54 | Inpatient (IN) | payer OTHER ==
[2024-12-21] MEDS ORDERED: ALBUTEROL SO4 2.5/IPRATROPIUM 0.5 INH SOL 3 ML VIAL.NEB. NEB ONE ×3 (12:38→15:24)
[2024-12-21] MEDS: ALBUTEROL SO4 2.5/IPRATROPIUM 0.5 INH SOL 3 ML VIAL.NEB. NEB ONE ×2 (12:44→15:23)
[2024-12-21 14:32] LABS: MCHC 31.0 g/dl (32.2-35.5); MEAN CELL VOLUME 98.1 fl (79.4-94.8); MEAN PLT VOLUME 10.4 fl (9.4-12.3); RDW 12.4 % (12.4-16.6)
[2024-12-21 14:56] LABS: GLUCOSE,RANDOM 113.0 mg/dL (74-106); TOT PROT 7.6 g/dl (6.4-8.2)
[2024-12-21 14:57] LABS: CO2 29.0 mmol/L (21-32)
[2024-12-21 14:59] LABS: ALK PHOS 99.0 U/L (40-150)
[2024-12-21 15:02] LABS: SGOT/AST 21.0 U/L (5-34); SGPT/ALT 21.0 U/L (0-55)
[2024-12-21] MEDS: SODIUM CHLORIDE 500 ML IV STA (15:23)
[2024-12-21 15:31] LABS: CREATININE 1.05 mg/dL (0.55-1.3)
[2024-12-21] MEDS ORDERED: ACETAMINOPHEN 500 MG TABLET (FP) PO PRN (15:44)
[2024-12-21] MEDS ORDERED: VANCOMYCIN 750 MG in DEXTROSE 5%-WATER - 150 ML IVPB SCH (16:00)
[2024-12-21] MEDS: LACTATED RINGERS SOLUTION 1,000 ML/1,000 ML INFUS.BAG IV SCH (16:56)
[2024-12-21] MEDS: PIPERACILLIN/TAZOB 4.5 GM 4.5 GM in DEXTROSE 5%-WATER 100 ML IVPB SCH (18:15)
[2024-12-21] MEDS: VANCOMYCIN/WATER FOR INJ (PEG) 750 MG/150 ML BAG IVPB SCH (18:53)
[2024-12-21 20:20] VITALS: BMI 20.7
[2024-12-21] MEDS ORDERED: HEPARIN NA (PORCINE) 5,000 UNITS/ML 1ML VIAL SQ SCH (22:00)
[2024-12-21] MEDS: ATORVASTATIN CA 10 MG TABLET (FP) PO SCH (22:26)
[2024-12-21] MEDS: MIRTAZAPINE 15 MG TABLET (FP) PO SCH (22:26)
[2024-12-21] MEDS: CARVEDILOL 3.125 MG TABLET (FP) PO SCH (22:26)
[2024-12-21] MEDS: MELATONIN 5 MG TABLETS PO SCH (22:26)
[2024-12-21] MEDS: SENNOSIDES 8.6MG TABLET (FP) PO SCH (22:27)
[2024-12-21] MEDS: VALPROIC ACID 250 MG CAPSULE PO SCH (22:27)
[2024-12-21] MEDS: VERAPAMIL HCL 120 MG TABLET PO SCH (22:27)
[2024-12-21] MEDS: APIXABAN 2.5 MG TABLET PO SCH (22:27)
[2024-12-21] MEDS: LACTATED RINGERS SOLUTION 1,000 ML/500 ML INFUS.BAG IV SCH (22:29)
[2024-12-21 22:56] LABS: HIV INTERPRETATION NEGATIVE (NEGATIVE)
[2024-12-22 07:58] LABS: ABSOLUTE IMMATURE GRANULOCYTES 0.17 x10^3/uL (0.0-0.031); BASOPHILS # 0.07 x10^3/uL (0.01-0.08); EOSINOPHIL % 0.6 % (0.7-5.8); EOSINOPHILS # 0.11 x10^3/uL (0.04-0.36); MCHC 30.9 g/dl (32.2-35.5); MEAN CELL VOLUME 97.1 fl (79.4-94.8); MEAN PLT VOLUME 10.3 fl (9.4-12.3); MONOCYTE # 1.16 x10^3/uL (0.24-0.86); MONOCYTE % 6.2 % (4.7-12.5); RDW 12.2 % (12.4-16.6)
[2024-12-22 08:55] LABS: GLUCOSE,RANDOM 72.0 mg/dL (74-106)
[2024-12-22 08:56] LABS: CO2 26.0 mmol/L (21-32)
[2024-12-22 09:01] LABS: CREATININE 0.81 mg/dL (0.55-1.3)
[2024-12-22] MEDS: FAMOTIDINE 20 MG TABLET PO SCH (12:02)
[2024-12-22] MEDS: VALPROIC ACID 250 MG CAPSULE PO SCH (12:03)
[2024-12-22] MEDS: POLYETHYLENE GLYCOL (HEALTHYLAX) 3350 17 GM PACKET PO SCH (12:03)
[2024-12-22] MEDS: PIPERACILLIN/TAZOB 3.375 GM 3.375 GM in DEXTROSE 5%-WATER - 50 ML IVPB SCH (17:19)
[2024-12-22] MEDS: INSULIN ASPART SLIDING SCALE (NOVOLOG) 1 VIAL SQ SCH (17:28)
[2024-12-23 07:28] LABS: ABSOLUTE IMMATURE GRANULOCYTES 0.11 x10^3/uL (0.0-0.031); BASOPHILS # 0.06 x10^3/uL (0.01-0.08); EOSINOPHIL % 0.9 % (0.7-5.8); EOSINOPHILS # 0.11 x10^3/uL (0.04-0.36); MCHC 31.1 g/dl (32.2-35.5); MEAN CELL VOLUME 96.6 fl (79.4-94.8); MEAN PLT VOLUME 10.3 fl (9.4-12.3); MONOCYTE # 0.92 x10^3/uL (0.24-0.86); MONOCYTE % 7.5 % (4.7-12.5); RDW 12.0 % (12.4-16.6)
[2024-12-23 08:10] LABS: GLUCOSE,RANDOM 88.0 mg/dL (74-106)
[2024-12-23 08:11] LABS: TOT PROT 6.3 g/dl (6.4-8.2)
[2024-12-23 08:12] LABS: CO2 22.0 mmol/L (21-32)
[2024-12-23 08:13] LABS: ALK PHOS 87.0 U/L (40-150)
[2024-12-23 08:16] LABS: CREATININE 0.74 mg/dL (0.55-1.3); SGOT/AST 19.0 U/L (5-34); SGPT/ALT 12.0 U/L (0-55)
[2024-12-23] MEDS ORDERED: VANCOMYCIN 1,000 MG in DEXTROSE 5%-WATER - 250 ML IVPB SCH (09:30)
[2024-12-23] MEDS: PIPERACILLIN/TAZOB 4.5 GM 4.5 GM in DEXTROSE 5%-WATER 100 ML IVPB SCH (10:49)
[2024-12-23] MEDS: VANCOMYCIN/WATER FOR INJ (PEG) 1,000 MG/200 ML BAG IVPB SCH (10:53)
[2024-12-23] MEDS ORDERED: HALOPERIDOL LACTATE 5 MG/ML IM ONE (16:25)
[2024-12-24] MEDS: DEXTROSE 50%-WATER 25 GM/50 ML DISP.SYRIN IVPUSH ONE (05:48)
[2024-12-24 13:39] VITALS: RESP 18
[2024-12-24] MEDS ORDERED: MUPIROCIN 2% TOPICAL OINTMENT FOR DECOLONIZATION NS SCH (22:00)
[2024-12-24 23:25] VITALS: BP 149/67; PULSE 70; TEMP 98.2
== END 2024-12-24 23:30 | DRG 871 ==
LOC: JER 10:54 → JERBED 15:48 → J5S 17:29
PROVIDERS: ADMIT Internal Medicine; ATTEND Student in an Organized Health Care Education/Training Program
DX: A41.9 Sepsis, unspecified organism (principal); E43 Unspecified severe protein-calorie malnutrition; J18.9 Pneumonia, unspecified organism; F03.90 Unspecified dementia, unspecified severity, without behavioral disturbance, psychotic disturbance, mood disturbance, and anxiety; I25.10 Atherosclerotic heart disease of native coronary artery without angina pectoris; J44.9 Chronic obstructive pulmonary disease, unspecified; E11.51 Type 2 diabetes mellitus with diabetic peripheral angiopathy without gangrene; R62.7 Adult failure to thrive; I48.91 Unspecified atrial fibrillation; Z86.74 Personal history of sudden cardiac arrest; Z68.20 Body mass index [BMI] 20.0-20.9, adult
CPT/HCPCS: 36415; 71045-TC-FY; 80048; 80053; 82962; 83735; 84100; 84484; 85025; 86803; 87077; 87081; 87389; 87637-QW; 87899; 93005; 93010; 99285-25